=== PATIENT | female | born 1945 | race Caucasian/White ===

== ENCOUNTER → 2016-04-06 | Outpatient (CLI) | payer MEDICARE, OTHER ==
[2016-04-04 15:00] VITALS: BP 132/69
[~2016-04-06] MED LIST: CIPR250T30 PO; DOCU-27 PO; FERR-26 PO; HYDR-2666 PO; IBUP-1060 PO; IOHEXOL 180 MG/ML 10 ML VIAL. ONE; LIDO20SO PO; OXYC-323 PO; PANT40TA3 PO; SENN-22 PO; SUCR1TAB29 PO; SULF1TAB24 PO; SUMA100T3 PO; WARF3TAB PO; ZOLP5TAB PO; methylPREDNISolone ACETATE 40 MG/ML VIAL. ONE; methylPREDNISolone ACETATE 80 MG/ML VIAL. ONE
--- NOTE | 2016-04-06 23:07 | PAIN ---
DATE OF SERVICE: 04/06/2016 DIAGNOSES: Lumbar radiculopathy with lumbar degenerative disk disease. HISTORY OF PRESENT ILLNESS: The patient is a 70-year-old female who returns for followup, first seen as inpatient and scheduled for a lumbar epidural steroid injection today, still reporting significant pain in the low back and left lower extremity as she had previously. The patient reports no new motor or sensory deficits, no new changes since we spoke a few days ago. The patient reports still significant pain when trying to ambulate, to put any weight on her left leg whatsoever. She is in wheelchair today with good motor movement when sitting still, but without significant debility to weightbear. The patient reports otherwise no new motor or sensory deficits, no new bowel or bladder incontinence or other complaints. The patient's old chart was reviewed as her current medication regimen updated. Current review of systems updated today as well. PHYSICAL EXAMINATION: VITAL SIGNS: The patient's blood pressure is 110/70, pulse 96, respirations 18, temperature 97.8 degrees Fahrenheit, height is 5 feet 6 inches, weight is 130 pounds. GENERAL: The patient is awake, alert, oriented, appropriate, very pleasant demeanor. HEENT: Shows normocephalic, atraumatic. Extraocular movements are intact and symmetrical. Oral cavity, mucous membranes are moist and pink. NECK: Shows anterior throat supple. CHEST: Shows breath sounds clear to auscultation bilaterally. HEART: Shows S1 and S2 clear. ABDOMEN: Soft, nontender, nondistended. BACK: Shows spine grossly midline. There is some slight flattening of lumbar lordotic curvature and thoracic kyphotic curvature. Lumbar paraspinous musculature shows some moderate tenderness with palpation bilaterally in the middle and lower lumbar distribution of paraspinous muscles. No tenderness over the sacrum or sacroiliac regions. The patient shows good rotation of movement of the lumbar spine, both laterally greater than 10 degrees right and left as well as extension greater than 10 degrees, forward flexion 45 degrees without difficulty. EXTREMITIES: The patient's lower extremities showed deep tendon reflexes 1+ in the patellar and tendo calcaneus tendons. Motor exam is approximately a 3 on a scale of 5 with left quadriceps and hamstring flexion, but 4/5 with dorsiflexion, extension and 4/5 entirely on the right side. Options were discussed with the patient. We will proceed with a lumbar epidural steroid injection today with fluoroscopic guidance. Risks were again discussed including, but not limited to bleeding, infection, possibility of epidural hematoma and subsequent neurologic compromise, dural puncture, headaches, spinal cord and/or nerve damage, side effects of steroid medication, exacerbation of symptoms and poor results regarding pain control. The patient understands and wishes to proceed. The patient will return to clinic in approximately 2 weeks for followup, was counseled on return appointment, activity level and side effects to be aware of. DIAGNOSIS: Lumbar radiculopathy with lumbar degenerative disk disease. PROCEDURE: Lumbar epidural steroid injection, translaminar approach at the L4-L5 level using C-arm fluoroscopic guidance under sterile prep and drape using local anesthesia. Medication injected is 120 mg Depo-Medrol plus 10 mL of preservative-free normal saline and 2 mL Isovue for contrast. Condition at discharge is stable. The patient tolerated procedure well, had no complications. ELYSIA KHALIL MD DR: SHAWN/mode JOB#: [id number] / [id number]
== END ==
LOC: PNCL 08:36
PROVIDERS: ATTEND Anesthesiology
DX: M51.16 Intervertebral disc disorders with radiculopathy, lumbar region (principal)
CPT/HCPCS: 62323; J1030; J1040

== ENCOUNTER → 2016-05-04 | Outpatient (CLI) | payer MEDICARE, OTHER ==
[2016-04-04 15:00] VITALS: BP 132/69
--- NOTE | 2016-05-05 11:32 | PAIN ---
DATE OF SERVICE: 05/04/2016 DIAGNOSES: Lumbar radiculopathy with lumbar degenerative disk disease. HISTORY OF PRESENT ILLNESS: The patient is a 70-year-old female, who returns for followup status post lumbar epidural steroid injection x 2. The patient reports doing much better, about 50% overall improved with the last injection. Still some pain in the left leg as it was in the left lateral thigh, posterior thigh, posterior gluteus, posterior lower leg and lateral lower leg to the ankle. The patient reports a 4 on a scale of 10, aching and heavy feeling on the left leg, mostly a heaviness over the left lateral and posterior lower leg to the ankle on the left side only. The patient reports that she is walking better, though she is using a cane to ambulate. Still significantly favors her left lower extremity, but doing much better than previously. The patient reports no new motor or sensory deficits, no new bowel or bladder incontinence or other complaints. PHYSICAL EXAMINATION: VITAL SIGNS: Today, the patient's blood pressure is 120/69, pulse 90, respirations 18, temperature 98.2 degrees Fahrenheit, height is 5 feet 6 inches, weight is 120 pounds. GENERAL: The patient is awake, alert, oriented, appropriate, very pleasant demeanor. HEENT: Head shows normocephalic, atraumatic. Extraocular movements are intact and symmetrical. Oral cavity shows mucous membranes moist and pink. Dentition is intact. NECK: Shows anterior throat supple without palpable lymphadenopathy noted. Swallow reflex is symmetrical. Neck shows full rotational motion of the cervical spine without difficulty including extension and flexion. CHEST: Shows normal on inspection. Breath sounds are clear to auscultation bilaterally. HEART: Shows S1 and S2 clear. ABDOMEN: Soft, nontender, nondistended. No palpable organomegaly is noted. BACK: Shows spine grossly midline. Slight exaggeration of thoracic kyphosis and mild flattening of lumbar lordotic curvature. Lumbar paraspinous muscle shows some mild tenderness with palpation throughout the upper, middle, lower distribution of paraspinous muscles, though only diffusely without radiation. No tenderness over the sacrum or sacroiliac regions. The patient shows good rotational motion of the lumbar spine, both laterally as well as extension and forward flexion without pain reported. EXTREMITIES: Lower extremities show deep tendon reflexes 1+ in the patellar and tendo-calcaneus tendons are equal. Motor exam is approximately 4 on a scale 5 with left quadriceps and hamstring flexion 5/5 on the right. Peripheral pulses are 1+ posterior tibial and dorsalis pedis pulses. No peripheral edema is noted. PLAN: Options were discussed with the patient. The patient's old chart was reviewed as was her current medication regimen updated. Current review of systems was updated today as well. We will proceed with a third lumbar epidural steroid injection today with fluoroscopic guidance. Risks were again discussed including, but not limited to, bleeding, infection, possibility of epidural hematoma, subsequent neurologic compromise, dural punctures, headaches, spinal cord and/or nerve damage, side effects of steroid medication, and poor results regarding pain control. The patient understands and wished to proceed. The patient will return to the clinic in approximately 2 weeks for followup. She was counseled as to return appointment, activity level, and side effects to be aware of. DIAGNOSES: Lumbar radiculopathy with lumbar degenerative disk disease. PROCEDURE: Lumbar epidural steroid injection translaminar approach at the L5-S1 level with C-arm fluoroscopic guidance. Under sterile prep and drape using local anesthetic, medication injection was 120 mg of Depo-Medrol plus 10 mL of preservative-free normal saline and 2 mL of Isovue contrast. CONDITION AT DISCHARGE: Stable. The patient tolerated the procedure well, had no complications. ELYSIA KHALIL MD DR: SHAWN/mode JOB#: [id number] / [id number]
== END | disposition home or self-care (01) ==
LOC: PNCL 09:27
PROVIDERS: ATTEND Anesthesiology
DX: M51.16 Intervertebral disc disorders with radiculopathy, lumbar region (principal); Z90.710 Acquired absence of both cervix and uterus; M19.90 Unspecified osteoarthritis, unspecified site
CPT/HCPCS: 62321; J1030; J1040

== ENCOUNTER → 2017-06-30 | Outpatient (CLI) | payer MEDICARE, OTHER | END | disposition home or self-care (01) | LOC: KCIC 15:44 | DX: M41.86 Other forms of scoliosis, lumbar region (principal); M47.896 Other spondylosis, lumbar region; M51.36 Other intervertebral disc degeneration, lumbar region; M25.78 Osteophyte, vertebrae | CPT/HCPCS: 72110 ==

== ENCOUNTER → 2017-07-07 | Outpatient (CLI) | payer MEDICARE, OTHER | END | disposition home or self-care (01) | LOC: KCIC MRI 15:38 | DX: M48.56XA Collapsed vertebra, not elsewhere classified, lumbar region, initial encounter for fracture (principal); M48.061 Spinal stenosis, lumbar region without neurogenic claudication; D18.09 Hemangioma of other sites | CPT/HCPCS: 72148 ==

== ENCOUNTER 2017-07-12 06:55 | Outpatient (CLI) | payer MEDICARE, OTHER ==
[2017-07-12 07:17] LABS: ADD MAN DIFF? NO
[2017-07-12 07:28] LABS: BASO % 1 % (0-3); EOS # 0.2 x10^3/uL (0.0-0.7); EOS % 4 % (0-3); HEMOGLOBIN 13.8 g/dL (12.0-15.5); LYMPH # 1.7 x10^3/uL (1.0-4.8); LYMPH % 30 % (24-48); MEAN CORPUSCULAR HEMOGLOBIN 31 pg (25-35); MEAN CORPUSCULAR HGB CONC 34 g/dL (31-37); MEAN CORPUSCULAR VOLUME 92 fL (79-100); MONO # 0.5 x10^3/uL (0.0-1.1); MONO % 9 % (0-9); NEUT # 3.3 x10^3uL (1.8-7.7); NEUT % 58 % (31-73); PLATELET COUNT 290 x10^3/uL (140-400); RED BLOOD COUNT 4.46 x10^6/uL (3.50-5.40); RED CELL DISTRIBUTION WIDTH 14.4 % (11.5-14.5); WHITE BLOOD COUNT 5.8 x10^3/uL (4.0-11.0)
[2017-07-12 07:43] LABS: PROTHROMBIN TIME PATIENT 12.4 SEC (11.7-14.0)
[2017-07-12] MEDS ORDERED: LIDOCAINE WITH 8.4% SOD BICARB 3 ML DISP.SYRIN. ×2 (08:07→09:14)
[2017-07-12] MEDS ORDERED: IODIXANOL 320MG/ML 50ML VIAL. (08:17)
[2017-07-12] MEDS ORDERED: CONTRAST GIVEN MC (08:30)
[2017-07-12] MEDS ORDERED: fentaNYL PF VIAL 100 MCG/2 ML VIAL (08:49)
[2017-07-12] MEDS ORDERED: MIDAZOLAM HCL/PF 2 MG/2 ML VIAL. (08:49)
[2017-07-12] MEDS: fentaNYL PF VIAL 100 MCG/2 ML VIAL IV (09:35)
[2017-07-12] MEDS: MIDAZOLAM HCL/PF 2 MG/2 ML VIAL. IV (09:36)
[2017-07-12] MEDS: IODIXANOL 320MG/ML 50ML VIAL. IV (09:36)
[2017-07-12] MEDS: LIDOCAINE WITH 8.4% SOD BICARB 3 ML DISP.SYRIN. IJ (09:37)
== END 2017-07-12 12:14 | disposition home or self-care (01) ==
LOC: INTRAD 06:55
DX: S32.010A Wedge compression fracture of first lumbar vertebra, initial encounter for closed fracture (principal); M54.9 Dorsalgia, unspecified; X58.XXXA Exposure to other specified factors, initial encounter; Y93.9 Activity, unspecified; Y92.9 Unspecified place or not applicable
CPT/HCPCS: 22514; 36415; 85025; 85610; 99152; 99153; C1758; C1892; J0690; J2250; J3010

== ENCOUNTER → 2018-03-06 | Outpatient (CLI) | payer MEDICARE, OTHER ==
[2017-07-12 11:00] VITALS: BP 106/56
[~2018-03-06] MED LIST changes: +DOCU-109 PO; -DOCU-27 PO; -FERR-26 PO; +FERR325T14 PO; -HYDR-2666 PO; +HYDR-2761 PO; -IOHEXOL 180 MG/ML 10 ML VIAL. ONE; -OXYC-323 PO; +OXYC1TAB15 PO; -SUCR1TAB29 PO; +SUCR1TAB35 PO; -WARF3TAB PO; +WARF3TAB54 PO; -methylPREDNISolone ACETATE 40 MG/ML VIAL. ONE; -methylPREDNISolone ACETATE 80 MG/ML VIAL. ONE
--- NOTE | 2018-03-06 16:15 | KCIC ---
Three-view right foot study Clinical indications: Right foot and pain after heavy object was dropped on right foot 3 weeks ago. COMPARISON: None available. FINDINGS: There is a subacute healing fracture of the midshaft of the first metatarsal bone. No significant displacement is evident. No lytic process is seen. There is lateral subluxation of the fifth middle phalanx with respect to the fifth proximal phalanx. Old healed fracture of the distal fifth metatarsal bone is seen. Subtalar joint fusion is evident with a metallic screw in place. IMPRESSION: Subacute healing fracture of the midshaft of the first metatarsal bone. Electronically signed by: Asa Hutton MD (03/06/2018 4:11 PM) [facility]
== END | disposition home or self-care (01) ==
LOC: KCIC 10:24
PROVIDERS: ATTEND Family Medicine
DX: S92.311D Displaced fracture of first metatarsal bone, right foot, subsequent encounter for fracture with routine healing (principal); X58.XXXD Exposure to other specified factors, subsequent encounter
CPT/HCPCS: 73630

== ENCOUNTER → 2018-04-02 | Outpatient (CLI) | payer MEDICARE, OTHER ==
[2017-07-12 11:00] VITALS: BP 106/56
--- NOTE | 2018-04-02 13:23 | KCIC ---
EXAM: Right foot, 3 views. HISTORY: Fracture follow-up. COMPARISON: 03/06/2018 FINDINGS: 3 views of the right foot are obtained. There has been slight interval progressive callus formation associated with a healing first mid metatarsal fracture. There is stable chronic abduction or slight subluxation at the fifth proximal interphalangeal joint. There is stable talocalcaneal fusion with a screw and loss of the subtalar joint space. There is suspected healed distal fifth metatarsal fracture. IMPRESSION: 1. Slight progressive healing of a mid first metatarsal fracture. 2. Stable talocalcaneal/subtalar fusion. 3. Stable abduction or slight subluxation at the fifth proximal interphalangeal joint. Electronically signed by: Kiley Soliz MD (04/02/2018 1:19 PM) [email or web address]
== END | disposition home or self-care (01) ==
LOC: KCIC 12:48
PROVIDERS: ATTEND Family Medicine
DX: S92.311D Displaced fracture of first metatarsal bone, right foot, subsequent encounter for fracture with routine healing (principal); W20.8XXD Other cause of strike by thrown, projected or falling object, subsequent encounter
CPT/HCPCS: 73630

== ENCOUNTER → 2019-11-15 | Outpatient (CLI) | payer MEDICARE, OTHER ==
[2017-07-12 11:00] VITALS: BP 106/56
[~2019-11-15] MED LIST changes: -PANT40TA3 PO; +PANT40TA77 PO
--- NOTE | 2019-11-15 12:58 | KCIC ---
Bilateral digital screening mammograms with 3-D tomosynthesis: Reason for examination: Routine screening. Comparison is made to previous studies dated 11/16/2016 and 06/19/2009. Bilateral mammograms in CC and oblique projections were obtained with 2-D imaging and 3-D tomosynthesis imaging on a Siemens Inspiration unit and reviewed on the workstation. Interpretation was made with the benefit of CAD. The skin and nipples show no abnormalities. No abnormal axillary lymph nodes are seen. Bilateral breast implants remain present. The breast parenchyma shows scattered fatty and fibroglandular density. (Breast density: Category B.) There continues to be a small circumscribed nodule medially on cc view and the right breast which is stable. There continues to be some nodularity to the parenchyma in the subareolar positions bilaterally which is stable. There are no new dominant masses, suspicious calcifications or architectural distortion. Impression: No evidence of malignancy. Recommend routine screening. BI-RAD Category 2: Benign. "Our facility is accredited by the [employer] Mammography Program." This patient's information has been entered into a reminder system for the patient to be notified with the results of her examination and a target date for the next mammogram. Electronically signed by: Eli Johnson MD (11/15/2019 12:55 PM) [id number]
== END | disposition home or self-care (01) ==
LOC: KCIC MAMMO 09:58
PROVIDERS: ATTEND Family Medicine
DX: Z12.31 Encounter for screening mammogram for malignant neoplasm of breast (principal); N64.89 Other specified disorders of breast
CPT/HCPCS: 77063; 77067

== ENCOUNTER → 2020-09-25 | Outpatient (CLI) | payer MEDICARE, OTHER ==
[2017-07-12 11:00] VITALS: BP 106/56
--- NOTE | 2020-09-25 11:44 | KCIC ---
MR LUMBAR SPINE WO [id number] 09/25/2020 8:48 AM INDICATION: Lumbar radiculopathy COMPARISON: MRI lumbar spine 07/07/2017 TECHNIQUE: Multiplanar, multisequence MR imaging of the lumbar sinus performed without intravenous c ontrast. FINDINGS: Spinal augmentation changes are identified at L1 with chronic 25% height loss. There is 2 mm anteroli sthesis of L3 on L4. Vertebral body heights are otherwise maintained. Marrow signal intensity is norm al in all sequences. Conus medullaris terminates at L1-L2. Distal spinal cord signal intensity is nor mal in all sequences. Abdominal aorta is normal in caliber. No suspicious retroperitoneal abnormality is identified. Visualized portions of the sacrum appear intact. T12-L1: Mild disc bulge. No significant facet arthropathy. No neuroforaminal or spinal canal stenosis . L1-L2: Mild disc bulge. Mild facet arthropathy ligamentum flavum infolding. Mild bilateral neuroforam inal stenosis. Mild spinal canal stenosis. L2-L3: There is a circumferential disc bulge. Mild facet arthropathy with ligamentum flavum infolding . Mild bilateral neuroforaminal stenosis. Mild spinal canal stenosis. Findings osteophyte change sinc e prior examination from 07/07/2017. L3-L4: There is a disc bulge asymmetric to the left. There is severe facet arthropathy, left greater than right. Mild right and moderate left neuroforaminal stenosis, stable. Mild spinal canal stenosis, unchanged. L4-L5: There is a circumferential disc bulge with central disc extrusion. Mild facet arthropathy liga mentum flavum infolding. Moderate to severe left and moderate right neuroforaminal stenosis. Mild spi nal canal stenosis. Findings are similar to prior examination. L5-S1: Disc is normal in configuration. Mild facet arthropathy. No neuroforaminal or spinal canal davidson nosis. IMPRESSION: Mild degenerative changes of lumbar spine without significant interval change since prior examination . Post treatment changes from spinal augmentation at L1 with similar 25% height loss. Electronically signed by: Mona Ortiz MD (09/25/2020 11:41 AM) [id number]
== END ==
LOC: KCIC MRI 08:20
PROVIDERS: ATTEND Family Medicine
DX: M47.817 Spondylosis without myelopathy or radiculopathy, lumbosacral region (principal); M51.26 Other intervertebral disc displacement, lumbar region; M48.061 Spinal stenosis, lumbar region without neurogenic claudication
CPT/HCPCS: 72148

== ENCOUNTER → 2020-10-08 | Outpatient (CLI) | payer MEDICARE, OTHER ==
[2017-07-12 11:00] VITALS: BP 106/56
[~2020-10-08] MED LIST changes: +DENO60DI SQ; +IOHEXOL 180 MG/ML 10 ML VIAL. ONE; +methylPREDNISolone ACETATE 40 MG/ML VIAL. ONE; +methylPREDNISolone ACETATE 80 MG/ML VIAL. ONE
--- NOTE | 2020-10-08 16:14 | PDOC1 ---
INITIAL PAIN CONSULT DATE OF SERVICE: DOS: DATE: 10/08/20 TIME: 16:06 CHIEF COMPLAINT: Chief Complaint: Low back and left lower extremity pain HISTORY OF PRESENT ILLNESS: 75-year-old female presents history of pain low back left lower extremity for about 3 months after falling at home when she stumbled on some steps and landed on her left side. Patient reports he had pain low back left lower extremity radiating the posterior gluteus posterior lateral thigh lateral anterior thigh to the knee into the calf on the medial aspect at times. Patient reports back is painful as well worse with walking standing changing positions better with sitting or laying down generally does not awaken her from sleep at night patient reports that it does not affect her bowel bladder control but can affect her ability to walk is using a cane in her right hand and has it with her today. 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 Patient did have MRI scan lumbar spine dated September 25, 2020 showing cervical disc bulge at L2-3 L3-4 showing disc bulge asymmetric to the left mild spinal canal stenosis L4-5 shows circumferential disc bulge with central disc extrusion moderate to severe left and moderate right neuroforaminal stenosis mild spinal canal stenosis patient reports no loss of motor function but significant fatigability of the left lower extremity. PAST MEDICAL HISTORY: PMH: Diverticulosis, arthritis, osteoporosis, irregular heart rhythm PREVIOUS SURGERIES: Past Surgical Hx: Right knee replacement, hysterectomy, LASEK procedure, facelift, right heel surgery, breast implants, left eye surgery, foot surgery CURRENT MEDICATIONS: Current Meds: Active Scripts Medications Dose Route/Sig Max Daily Dose Days Date Category Dose Instructions Prolia (Denosumab) 60 Mg/1 Ml Disp.syrin 1 Syr SQ [id number] 1 10/08/20 Reported Ibuprofen 800 Mg Tablet 800 Mg PO PRN TID PRN 04/04/16 Rx Senna-Time S Tablet (Sennosides/Docusate Sodium) 1 Each Tablet 1-2 Tab PO PRN BID PRN 04/04/16 Rx Imitrex (Sumatriptan Succinate) 100 Mg Tablet 100 Mg PO PRN PRN 06/06/14 Reported Not given while in hosp. May resume at home as directed as needed. ALLERGIES; Allergies: Coded Allergies: No Known Drug Allergies (Unverified , 3/4/16) FAMILY HISTORY: Family Hx: No major medical problems or conditions that she is aware of. SOCIAL HISTORY: Social Hx: Patient is alcohol only very rarely does not smoke not use any illegal illicit recreational drugs is lives with her spouse lives locally in [facility] and is currently retired. REVIEW OF SYSTEMS: ROS: Positive for those items mentioned in history of present illness, all systems are reviewed, otherwise negative ,and are complete full and well-documented on patient's chart. PHYSICAL EXAM: VS: Blood pressure is 102/78 pulse 69 respirations 18 temperature is 98.2 F height is 5 foot 3 inches, weight is 124 pounds. PE: PHYSICAL EXAMINATION: GENERAL: The patient is awake, alert, oriented, appropriate, very pleasant demeanor HEENT: Shows normocephalic, atraumatic. Extraocular movements are intact and symmetrical. Oral cavity: Mucous membranes moist and pink. Dentition is intact. NECK: Shows anterior throat supple without palpable lymphadenopathy noted. Swallow reflex symmetrical. CHEST: Shows normal on inspection. Breath sounds are clear bilaterally, distant but no rales rhonchi or wheezes auscultated. HEART: Shows S1, S2 clear. No murmurs auscultated. ABDOMEN: Soft, nontender, nondistended, flat. No palpable organomegaly is noted. BACK: Shows spine grossly in the midline. Normal-appearing cervical lordotic curvature. There is increased thoracic kyphosis, some mild flattening of the lumbar lordotic curvature. Lumbar paraspinous muscles show symmetrical on inspection, on palpation shows some moderate tenderness diffusely throughout the upper, middle and lower distribution of the paraspinous muscles bilaterally and also into the lower thoracic paraspinous musculature, firm and tender, but without specific trigger points, without radiation of pain. The patient has good rotational motion of the lumbar spine, both laterally as well as extension and flexion without significant difficulty. No tenderness over the spinous processes, sacrum or sacroiliac regions. EXTREMITIES: Lower extremities show deep tendon reflexes 2+ in the patellar and tendo calcaneus tendons. Motor exam is 5 on a scale of 5 with right dorsi flexion, extension, quadriceps and hamstring flexion and 4/5 on the left. Peripheral pulses are 1 posterior tibial. No peripheral edema is noted bilaterally. Lower extremities are warm and dry to touch, equal in color and appearance. Straight leg raise noted to be positive on the left approximately 40 degrees decreased with knee flexion, right side is negative. Gaenslen's and Crow's maneuvers are negative bilateral as well. The patient is able to stand, stand on her toes walks with a limping gait does appear to favor the left lower extremity and again has a cane she is using a brace in her right hand. SKIN: Shows warm and dry, good turgor. No edema. No sores, rashes or bruising throughout. IMPRESSION: Impression: 75-year-old female with long history of low back pain worse after fall at home over the past 3 months with radicular pain in the left lower extremity. MRI scan lumbar spine as noted Arthritis Osteoporosis Plan: Options were discussed with the patient including conservative medical management physical therapy interventional techniques. Patient would like to pursue interventional techniques. We discussed a lumbar epidural steroid injections description as well as anatomical models described the procedure. Risks were discussed including but not limited to: Bleeding, infection, possibility of epidural hematoma and subsequent neurological compromise, dural puncture, headaches, spinal cord and/or nerve damage, side effects of steroid medication, and poor results regarding pain control. Patient understands and wished to proceed. Patient return to the clinic in approximate 2 weeks for f ollow-up, was counseled as return appointment activity level, and side effects to be aware of. Procedure is lumbar epidural steroid injection under local anesthetic using sterile prep and drape at the L4-5 level using C-arm fluoroscopic guidance in both AP and lateral views medications injected is 120 mg Depo-Medrol +10mL preservative-free normal saline and 2 mL contrast- condition at discharge is stable patient tolerated procedure well had no complications. ELYSIA KHALIL MD Oct 08, 2020 16:13
== END | disposition home or self-care (01) ==
LOC: PNCL 12:55
PROVIDERS: ATTEND Anesthesiology
DX: M54.5 Low back pain (principal); M79.605 Pain in left leg; M19.90 Unspecified osteoarthritis, unspecified site; M81.0 Age-related osteoporosis without current pathological fracture; Z90.710 Acquired absence of both cervix and uterus; Z98.890 Other specified postprocedural states; Z79.899 Other long term (current) drug therapy
CPT/HCPCS: 62323; 99205; J1030; J1040; Q9965; G0463

== ENCOUNTER → 2020-10-22 | Outpatient (CLI) | payer MEDICARE, OTHER ==
[2017-07-12 11:00] VITALS: BP_DIAS 56
[2020-10-19 15:00] VITALS: BP_SYST 116
[~2020-10-22] MED LIST changes: +CEPH500C PO; +DICY10CA3 PO; +ONDA4TAB7 PO
--- NOTE | 2020-10-22 10:56 | PDOC ---
Progress Note - Pain Clinic Date of Service: DOS: DATE: 10/22/20 TIME: 10:53 Diagnosis: Dx: Lumbar radiculopathy lumbar degenerative disc disease and lumbar spinal stenosis History or Present Illness: HPI: 75-year-old female returns for follow-up status post lumbar epidural to injection x1. Patient reports about 50% improvement in the pain in the low back and the left lower extremity but patient was recently hospitalized secondary to bowel obstruction and this is passed without surgery however she was laying flat for many days in the hospital and having multiple x-ray exams which she reports exacerbated the pain in her back and her left leg rating the posterior gluteus posterior lateral thigh lateral anterior thigh anterior medial thigh medial lower leg and posterior knee patient reports is a 7 on scale 10 over the past week at all times average worst and least is a 7 today patient comes aching con stant severe burning cramping stabbing in the back and shooting and tight in the lower extremity on the left patient reports is better with sitting or laying down but worse with standing weightbearing generally does not awaken her from sleep at night. Patient reports no new motor or sensory deficits no bowel or bladder incontinence Physical Exam: VS: Blood pressure is 118/69 pulse 53 respirations 18 temperature 98.2 F height 5 feet 3 inches weight 122 pounds PE: PHYSICAL EXAMINATION: GENERAL: The patient is awake, alert, oriented, appropriate, very pleasant in demeanor HEENT: Shows normocephalic, atraumatic. Extraocular movements are intact and symmetrical. Oral cavity: Mucous membranes moist and pink. NECK: Shows anterior throat supple without palpable lymphadenopathy noted. Swallow reflex symmetrical. CHEST: Shows normal on inspection. Breath sounds are clear bilaterally, distant but no rales or rhonchi. HEART: Shows S1, S2 clear. No murmurs auscultated. ABDOMEN: Soft, nontender, nondistended, obese. No palpable organomegaly is noted. BACK: Shows spine grossly in the midline. Normal-appearing cervical lordotic curvature. There is slightly increased thoracic kyphosis, some minor flattening of the lumbar lordotic curvature. Lumbar paraspinous muscles show symmetrical on inspection, on palpation shows some moderate tenderness diffusely throughout the upper, middle and lower distribution of the paraspinous muscles without specific trigger points, without radiation of pain. The patient has good rotational motion of the lumbar spine, both laterally as well as extension and flexion without significant difficulty. EXTREMITIES: Lower extremities show deep tendon reflexes 2+ in the patellar and tendo calcaneus tendons. Motor exam is 5 on a scale of 5 with right dorsiflexion, extension, quadriceps and hamstring flexion and 4/5 on the left. Peripheral pulses are 1+ posterior tibial. No peripheral edema is noted bilaterally. Lower extremities are warm and dry. SKIN: Shows warm and dry, good turgor. No edema. No sores, rashes or bruising throughout. Procedure: Procedure: Options were discussed with patient. Patient chart was reviewed as her current medication regimen updated current review of systems updated today as well. We will proceed with a second lumbar epidural steroid injection today with fluoroscopic guidance. Risks were discussed including but not limited to: Bleeding, infection, possibility of epidural hematoma and subsequent neurological compromise, dural puncture, headaches, spinal cord and/or nerve damage, side effects of steroid medication, and poor results regarding pain control. Patient understands and wished to proceed. Patient return to clinic in approximate 2 weeks for follow-up, was counseled as to return appointment activity level and side effects to be aware of. Medication Injected: Med Injected: Procedure is lumbar epidural steroid injection under local anesthetic using sterile prep and drape at the L4-5 level using C-arm fluoroscopic guidance in both AP and lateral views medications injected is 120 mg Depo-Medrol +10mL preservative-free normal saline and 2 mL contrast- condition at discharge is stable patient tolerated procedure well had no complications. Condition at Discharge: Condition at Discharge: Condition at discharge stable, patient tolerated the procedure well and had no complications. ELYSIA KHALIL MD Oct 22, 2020 10:56
--- NOTE | 2020-10-22 10:57 | PDOC4 ---
Procedure Note: ICD 10 Code: ICD 10 Code: M 54.16 M 48.07 Procedure Note: Patient was consented for lumbar epidural steroid injection with fluoroscopic guidance. Risks were discussed including but not limited to: Bleeding, infection, possibility of epidural hematoma and subsequent neurological compromise, dural puncture, headaches, spinal cord and/or nerve damage, side effects of steroid medication, and poor results regarding pain control. Patient understands and wished to proceed. Procedure is lumbar epidural steroid injection under local anesthetic using sterile prep and drape at the L4-5 level using C-arm fluoroscopic guidance in both AP and lateral views medications injected is 120 mg Depo-Medrol +10mL preservative-free normal saline and 2 mL contrast- condition at discharge is stable patient tolerated procedure well had no complications. ELYSIA KHALIL MD Oct 22, 2020 10:57
== END ==
LOC: PNCL 09:42
PROVIDERS: ATTEND Anesthesiology
DX: M48.061 Spinal stenosis, lumbar region without neurogenic claudication (principal); M51.16 Intervertebral disc disorders with radiculopathy, lumbar region
CPT/HCPCS: 62323; J1030; J1040; Q9965

== ENCOUNTER → 2020-11-26 | Outpatient (CLI) | payer MEDICARE, OTHER ==
[2020-10-19 15:00] VITALS: BP 116/56
[~2020-11-26] MED LIST changes: +PLEC3TAB2 PO; -methylPREDNISolone ACETATE 40 MG/ML VIAL. ONE
--- NOTE | 2020-11-26 09:14 | PDOC4 ---
Procedure Note: ICD 10 Code: ICD 10 Code: M54.16 M4 8.06 M51.36 Procedure Note: Patient was consented for lumbar epidural steroid injection with fluoroscopic guidance. Risks were discussed including but not limited to: Bleeding, infection, possibility of epidural hematoma and subsequent neurological compromise, dural puncture, headaches, spinal cord and/or nerve damage, side effects of steroid medication, and poor results regarding pain control. Patient understands and wished to proceed. Procedure is lumbar epidural steroid injection under local anesthetic using davidson rile prep and drape at the L4-5 level using C-arm fluoroscopic guidance in both AP and lateral views medications injected is 120 mg Depo-Medrol +10mL preservative-free normal saline and 2 mL contrast- condition at discharge is stable patient tolerated procedure well had no complications. ELYSIA KHALIL MD Nov 26, 2020 09:14
--- NOTE | 2020-11-26 09:14 | PDOC ---
Progress Note - Pain Clinic Date of Service: DOS: DATE: 11/26/20 TIME: 09:11 Diagnosis: Dx: Lumbar radiculopathy with lumbar degenerative disease and lumbar spinal stenosis History or Present Illness: HPI: 75-year-old female returns for follow-up status post lumbar epidural steroid injection x2. Last seen 10/22/2020 patient reports she did very well with about 80% improvement for the first 3 to 4 weeks the pain returning now over the past few days she has a new finding of some weakness in the left lower extremity and she actually fell just about 2 weeks ago reports that the leg just gave out she does not have this happen before is felt weak since that time patient reports her pain is a 7 on scale 10 is worst average and least is a 7 today describes aching radiating constant stabbing cramping can be tingling and burning in the left leg as well patient reports still feels weak which is new finding for her as previously the weakness improved significantly after the injections but seems to be getting more so since her last visit. Patient reports no new bowel or bladder incontinence Physical Exam: VS: Blood pressure is 132/53 pulse 71 respirations 18 temperature 98.0 F weight is 122 pounds PE: PHYSICAL EXAMINATION: GENERAL: The patient is awake, alert, oriented, appropriate, very pleasant in demeanor HEENT: Shows normocephalic, atraumatic. Extraocular movements are intact and symmetrical. Oral cavity: Mucous membranes moist and pink. NECK: Shows anterior throat supple without palpable lymphadenopathy noted. Swallow reflex symmetrical. CHEST: Shows normal on inspection. Breath sounds are clear bilaterally, no rales rhonchi or wheezes auscultated. HEART: Shows S1, S2 clear. No murmurs auscultated. ABDOMEN: Soft, nontender, nondistended, obese. No palpable organomegaly is noted. BACK: Shows spine grossly in the midline. Normal-appearing cervical lordotic curvature. There is slightly increased thoracic kyphosis, some minor flattening of the lumbar lordotic curvature. Lumbar paraspinous muscles show symmetrical on inspection, on palpation shows some moderate tenderness diffusely throughout the upper, middle and lower distribution of the paraspinous muscles, but without specific trigger points, without radiation of pain. The patient has good rotational motion of the lumbar spine, both laterally as well as extension and flexion without significant difficulty. EXTREMITIES: Lower extremities show deep tendon reflexes 2+ in the patellar and tendo calcaneus tendons. Motor exam is 5 on a scale of 5 with right dorsiflexion, extension, quadriceps and hamstring flexion and 4/5 on the left. Peripheral pulses are 1+ posterior tibial. No peripheral edema is noted bilaterally. Lower extremities are warm and dry. SKIN: Shows warm and dry, good turgor. No edema. No sores, rashes or bruising throughout. Procedure: Procedure: Options discussed with patient. Patient's old chart was reviewed as her current medication regimen updated current review of systems updated today as well. We will proceed with a lumbar epidural steroid injection today with fluoroscopic guidance. Risks were discussed including but not limited to: Bleeding, infection, possibility of epidural hematoma and subsequent neurological co mpromise, dural puncture, headaches, spinal cord and/or nerve damage, side effects of steroid medication, and poor results regarding pain control. Patient understands and wished to proceed. She will return to the clinic in approximate 2 weeks for follow-up, was counseled as to return appointment active level and side effects to be aware of. Medication Injected: Med Injected: Procedure is lumbar epidural steroid injection under local anesthetic using sterile prep and drape at the L4-5 level using C-arm fluoroscopic guidance in both AP and lateral views medications injected is 120 mg Depo-Medrol +10mL preservative-free normal saline and 2 mL contrast- condition at discharge is stable patient tolerated procedure well had no complications. Condition at Discharge: Condition at Discharge: Condition at discharge stable, patient tolerated the procedure well and had no complications. ELYSIA KHALIL MD Nov 26, 2020 09:14
== END ==
LOC: PNCL 09:10
PROVIDERS: ATTEND Anesthesiology
DX: M51.16 Intervertebral disc disorders with radiculopathy, lumbar region (principal); M48.061 Spinal stenosis, lumbar region without neurogenic claudication
CPT/HCPCS: 62323; J1040; Q9965

== ENCOUNTER → 2021-01-01 | Outpatient (CLI) | payer MEDICARE, OTHER ==
[2020-10-19 15:00] VITALS: BP 116/56
[~2021-01-01] MED LIST changes: -IOHEXOL 180 MG/ML 10 ML VIAL. ONE; -methylPREDNISolone ACETATE 80 MG/ML VIAL. ONE
--- NOTE | 2021-01-01 16:11 | KCIC ---
Bilateral digital screening 2-D and 3-D (tomosynthesis) mammogram: Reason for examination: Routine screening. Comparison is made to previous study dated 11/15/2019. Bilateral mammograms in CC and oblique projections were obtained with 2-D imaging and 3-D tomosynthes is imaging and reviewed on the workstation. Interpretation was made with the benefit of CAD. Findings: Breast density: Category C. The breasts are heterogeneously dense, which may obscure small masses. There are no suspicious masses, malignant appearing calcifications or architectural distortion. There is a small benign intramammary lymph node in the right upper outer quadrant approximately 2.5 cm fro m the nipple. A more vague area of nodularity is seen right breast about 2.5 cm from the nipple on th e 3-D CC images was present on the prior exam. The retroglandular bilateral silicone breast show cont our. Impression: No evidence of malignancy. ASSESSMENT: BI-RADS 2. Benign findings. Recommendations: Routine screening mammograms. This patient's information has been entered into a reminder system for the patient to be notified wit h the results of her examination and a target date for the next mammogram. Your patient's mammogram demonstrates that she has dense breast tissue (breast density category C or D), which could hide abnormalities, and if she has other risk factors for breast cancer that have bee n identified, she might benefit from supplemental screening tests that may be suggested by you as her ordering physician. Dense breast tissue, in and of itself, is a relatively common condition. Therefo re, this information is not provided to cause undue concern, but rather to raise your awareness and t o promote discussion with your patient regarding the presence of other risk factors, in addition to d ense breast tissue. Electronically signed by: Gloria Carty MD (01/01/2021 4:08 PM) [id number]
== END ==
LOC: KCIC MAMMO 10:00
PROVIDERS: ATTEND Family Medicine
DX: Z12.31 Encounter for screening mammogram for malignant neoplasm of breast (principal)
CPT/HCPCS: 77063; 77067

== ENCOUNTER → 2021-05-17 | Outpatient (CLI) | payer MEDICARE, OTHER ==
[2020-10-19 15:00] VITALS: BP 116/56
--- NOTE | 2021-05-17 12:13 | KCIC ---
EXAM: Right foot, 3 views; right ankle, 3 views. HISTORY: Acquired deformity. Surgery. Pain. COMPARISON: 04/02/2018 FINDINGS: 3 views of the right foot and ankle are obtained. There has been interval healing of a firs t metatarsal fracture. There is suspected slight associated foreshortening of the first metatarsal. T here is also a healed fracture of the distal fifth metatarsal. There has been partial interval amputa tion of the fifth proximal phalanx. There is instrumented fusion of the subtalar joint with associate d bony bridging. There is also fusion is rotation within the medial and lateral midfoot traversing ca lcaneal cuboid joint and talonavicular joint. There is bone demineralization, likely due to disuse os teopenia. There is tibiotalar joint spurring. There is enthesopathy at Achilles tendon insertion. The re is no osteochondral lesion. There are small corticated ossicles inferior to the medial and lateral malleoli, likely due to chronic nonunited avulsion fracture fragments. IMPRESSION: 1. Healed first and fifth metatarsal fractures. 2. Instrumented fusion of the mid and hindfoot with bony bridging. 3. Interval partial amputation of the fifth proximal phalanx. 4. 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 5. Tibiotalar joint osteoarthritis and chronic suspected avulsion fracture fragments inferior to the medial and lateral malleoli. Electronically signed by: Kiley Soliz MD (05/17/2021 12:11 PM) [id number]
== END ==
LOC: KCIC 11:10
PROVIDERS: ATTEND Orthopaedic Surgery
DX: M19.071 Primary osteoarthritis, right ankle and foot (principal); M76.61 Achilles tendinitis, right leg; M21.961 Unspecified acquired deformity of right lower leg
CPT/HCPCS: 73610; 73630

== ENCOUNTER 2021-07-19 16:00 | Inpatient (IN) | payer MEDICARE, OTHER ==
[~2021-07-19] VITALS: Ht 165.1 cm; Wt 56.4 kg
--- NOTE | 2021-07-19 17:21 | PDOC1 ---
History and Physical Date of Admission Date of Admission DATE: 07/19/21 TIME: 17:20 Identification/Chief Complaint Chief Complaint Buttock pain, fall Source Source: Patient History of Present Illness History of Present Illness Ms Dietrich is a 75-year-old female with PMHx chronic back pain, migraines, prior SBO presenting to ED at [facility] in [place], [place] after a fall onto her backside. She initially fell at 0800 on 07/18/2021 on her bottom and she blames her right foot boot from her recent foot surgery with Dr. Hogan at [facility]. She notes she lost her balance did not strike her head. She has not been able to bear weight on her left leg after this. Previously she has had an L1 fracture and kyphoplasty but did not note back pain that high its border gluteal area shooting down into her left leg. WBC 15.1, Hb 13.2, platelets 225, NA 136, K3.8, BUN 12, CR 0.6, glucose 110, calcium 8.5, magnesium 2.1, bilirubin 1.5, AST 26, ALT 29, alkaline phosphatase 85, albumin 3.6, high-sensitivity troponin is 204, urinalysis with positive leuk esterase positive nitrites positive ketones, rapid COVID-19, rapid influenza both negative EKG tachycardia rate 130 bpm no noticeable P waves consistent with likely atrial fibrillation with RVR appears to have left axis deviation and left anterior fascicular block, QTC 500 Chest radiograph with no acute abnormalities, left hip with ORIF of left femur nondisplaced, on CT lumbar spine and left sacral alae fracture noted mild retroperitoneal stranding the left psoas muscle. Past Medical History Cardiovascular: HTN Past Surgical History Past Surgical History: Total knee replacement (Left), Hysterectomy, Other (Right foot, Dr. Hogan, left femur fracture, Dr. Louis) Family History Family History: Other Social History Smoke: No ALCOHOL: rare Drugs: None Current Medications Current Medications Current Medications Non-Formulary Medication (Plecanatide (Trulance)) 1 tab DAILY PO ; Start 07/20/21 at 09:00; Status UNV Diltiazem HCl 125 mg/Sodium Chloride 125 ml @ 5 mls/hr CONT PRN IV PER PROTOCOL; Start 07/19/21 at 17:15; Status UNV Diltiazem HCl (Cardizem Iv Push) 10 mg 1X ONCE IVP ; Start 07/19/21 at 17:15; Stop 07/19/21 at 17:16; Status UNV Active Scripts Active Ibuprofen 800 Mg Tablet 800 Mg PO PRN TID PRN Reported Trulance (Plecanatide) 3 Mg Tablet 1 Tab PO DAILY 30 Days Prolia (Denosumab) 60 Mg/1 Ml Disp.syrin 1 Syr SQ [id number] 1 Days Imitrex (Sumatriptan Succinate) 100 Mg Tablet 100 Mg PO PRN PRN Not given while in hosp. May resume at home as directed as needed. Allergies Allergies: Coded Allergies: No Known Drug Allergies (Unverified , 05/29/15) ROS General: YES: Fatigue, Malaise; No: Chills, Night Sweats, Appetite, Other PSYCHOLOGICAL ROS: No: Anxiety, Behavioral Disorder, Concentration difficultie, Decreased libido, Depression, Disorientation, Hallucinations, Hostility, Irritablity, Memory difficulties, Mood Swings, Obsessive thoughts, Physical abuse, Sexual abuse, Sleep disturbances, Suicidal ideation, Other Eyes: No Blurry vision, No Decreased vision, No Double vision, No Dry eyes, No Excessive tearing, No Eye Pain, No Itchy Eyes, No Loss of vision, No Photophobia, No Scotomata, No Uses contacts, No Uses glasses, No Other HEENT: No: Heacaches, Visual Changes, Hearing change, Nasal congestion, Nasal discharge, Oral lesions, Sinus pain, Sore Throat, Epistaxis, Sneezing, Snoring, Tinnitus, Vertigo, Vocal changes, Other ALLERGY AND IMMUNOLOGY: No: Hives, Insect Bite Sensitivity, Itchy/Watery Eyes, Nasal Congestion, Post Nasal Drip, Seasonal Allergies, Other Hematological and Lymphatic: No: Bleeding Problems, Blood Clots, Blood Transfusions, Brusing, Night Sweats, Pallor, Swollen Lymph Nodes, Other ENDOCRINE: No: Breast Changes, Galactorrhea, Hair Pattern Changes, Hot Flashes, Malaise/lethargy, Mood Swings, Palpitations, Polydipsia/polyuria, Skin Changes, Temperature Intolerance, Unexpected Weight Changes, Other Breast: No New/Changing Breast Lumps, No Nipple changes, No Nipple discharge, No Other Respiratory: No: Cough, Hemoptysis, Orthopnea, Pleuritic Pain, Shortness of breath, SOB with excertion, Sputum Changes, Stridor, Tachypnea, Wheezing, Other Cardiovascular: No Chest Pain, No Palpitations, No Orthopnea, No Paroxysmal Noc. Dyspnea, No Edema, No Lt Headedness, No Other Gastrointestinal: No Nausea, No Vomiting, No Abdominal Pain, No Diarrhea, No Constipation, No Melena, No Hematochezia, No Other Genitourinary: No Dysuria, No Frequency, No Incontinence, No Hematuria, No Retention, No Discharge, No Urgency, No Pain, No Flank Pain, No Other, No , No , No , No , No , No , No Musculoskeletal: Yes Gait Disturbance, Yes Joint Pain; No Joint Stiffness, No Joint Swelling, No Muscle Pain, No Muscular Weakness, No Pain In:, No Swelling In:, No Other Neurological: No Behavorial Changes, No Bowel/Bladder ControlChng, No Confusion, No Dizziness, No Gait Disturbance, No Headaches, No Impaired Coord/balance, No Memory Loss, No Numbness/Tingling, No Seizures, No Speech Problems, No Tremors, No Visual Changes, No Weakness, No Other Skin: No Dry Skin, No Eczema, No Hair Changes, No Lumps, No Mole Changes, No Mottling, No Nail Changes, No Pruritus, No Rash, No Skin Lesion Changes, No Other, No Acne Physical Exam General: Alert, Oriented X3, Cooperative, moderate distress HEENT: Atraumatic, PERRLA, EOMI, Mucous membr. moist/pink Lungs: Clear to auscultation, Normal air movement Heart: irregularly irregular Abdomen: Normal bowel sounds, Soft, No tenderness, No hepatosplenomegaly, No masses Rectal Exam: not examined Extremities: No clubbing, No cyanosis, No edema, Normal pulses, Other (pain on left hip palpat) Skin: No rashes, No breakdown, No significant lesion Neuro: Normal speech, Strength at 5/5 X4 ext, Normal tone, Sensation intact, Cranial nerves 3-12 NL, Reflexes 2+ Psych/Mental Status: Mental status NL, Mood NL Images Images CHEST AP ONLY EXAMINATION: Chest radiograph. VIEWS: Single AP view of the chest COMPARISON: None available INDICATION:76 years, Female, pain. FINDINGS: Normal cardiomediastinal silhouette. No focal consolidation. No pleural effusion or pneumothorax. No acute osseous process. IMPRESSION: No acute cardiopulmonary process. Electronically signed by: Chirag Holly DO (07/19/2021 10:06 AM) [facility] DICTATED AND SIGNED BY: CHIRAG HOLLY DO DATE: 07/19/21 1004 CC: TOÑO CARSON MD; JENIFFER SANDOVAL MD ~ PATIENT: LUPE DIETRICH ACCOUNT: [id number] : 1945 LOCATION: ER AGE: 76 SEX: F EXAM STATUS: REG ER ORD. PHYSICIAN: JENIFFER SANDOVAL MD REASON: pain PROCEDURE: HIP LEFT 2V WITH PELVIS Left hip AP lateral and AP pelvis x-rays HISTORY: Left hip pain. FINDINGS: Suture anchors at the pubic bones adjacent of the pubic symphysis. ORIF with long intramedullary nail of the femur with femoral neck screw as well as a distal femoral interlocking screw bridging an old healed traumatic deformity of the trochanteric femur. No bone lysis surrounding the hardware to suggest loosening. No fracture or dislocation of the hip. Heterotopic ossification immediately above the greater trochanter of the femur. The soft tissues are normal. IMPRESSION: No acute osseous injury. ORIF of the left femur. See above. Electronically signed by: Harjinder Obrien MD (07/19/2021 10:45 AM) [facility] [place] DICTATED AND SIGNED BY: HARJINDER OBRIEN MD DATE: 07/19/21 1044 CC: TOÑO CARSON MD; JENIFFER SANDOVAL MD ~ PATIENT: LUPE DIETRICH ACCOUNT: [id number] : 1945 LOCATION: ER AGE: 76 SEX: F EXAM STATUS: REG ER ORD. PHYSICIAN: JENIFFER SANDOVAL MD REASON: fall, pain,HX OF VERTBROPLASTY 10 YRS AGO PROCEDURE: CT LUMBAR SPINE WO CONTRAST CT lumbar spine without contrast PQRS statement: CT scans at this facility use dose reduction including either automated exposure control, iterative reconstructions, and /or weight based radiation dosing via mA and kV modification when appropriate to reduce radiation dose to as low as reasonably achievable. HISTORY: Fall, back pain, history of vertebroplasty 10 years ago. COMPARISON: CT abdomen January 03, 2020. FINDINGS: Dextroconvex mild lumbar scoliosis. There is a chronic L1 vertebral compression fracture 25% height loss status post bone cement augmentation of the vertebra, there is chronic 2 mm of bony retropulsion, this is stable to prior imaging. Remainder of the lumbar spine demonstrates intact vertebral height and alignment. There is 2 mm anterolisthesis of L3 on L4 associated with disc disease and asymmetric left facet arthropathy with bony spurring. No acute fracture of lumbar spine. There is acute fracture of the left sacral ala extending inferior outside of the field of view. Lumbar disc bulges and facet spurring contributes to multiple levels of neural foraminal stenoses to a mild to moderate degree, and there may be spinal canal stenoses at L2-L3, L3-L4 and L4-L5 as well. There is mild stranding surrounding the left psoas muscle at the lower lumbar spine and upper pelvis. IMPRESSION: 1. Acute traumatic left sacral ala fractures. 2. No acute osseous injury of the lumbar spine. 3. Chronic treated L1 vertebral compression fracture stable to prior imaging. 4. There is mild retroperitoneal stranding surrounding the lower segment of the left psoas muscle to the upper pelvis at the iliacus muscle. 5. Lumbar scoliosis and disc disease as described above. VTE Prophylaxis Ordered VTE Prophylaxis Devices: Yes VTE Pharmacological Prophylaxi: Yes Assessment/Plan Assessment/Plan Atrial tachycardia with RVR -looks to be atrial fibrillation. Well schedule IV metoprolol as IV Cardizem is currently not available at this facility. Consult cardiology. Heparin GTT Left Sacral alar fracture - IV and PO pain regimen. consult PMR and ortho Fall at home - gait training program after surgical clearance Chronic back pain - prior L1 kyphoplasty Chronic right foot pain - s/p recent surgical correction with Dr. Hogan at [facility] Leukocytosis - likely reactive given above trauma FEN - Cardiac diet PPX - heparin FULL CODE Dispo - inpatient Justifications for Admission General Conditions Poss tachycardia?: Yes Justification for admission: Patient has tachycardia (> 100 beats per minute) which is not readily corrected by appropriate treatment within 12 to 24 hours. Other Justification PARRIS MOLINA MD Jul 19, 2021 17:21
[2021-07-19] MEDS ORDERED: ACETAMINOPHEN 325 MG TABLET. PO PRN (17:30)
[2021-07-19] MEDS ORDERED: HEPARIN for IV BOLUS 10,000 UNIT/10 ML VIAL. IV ONE (17:30)
[2021-07-19] MEDS ORDERED: HEPARIN for IV BOLUS 10,000 UNIT/10 ML VIAL. IV PRN (17:30)
[2021-07-19] MEDS ORDERED: fentaNYL PF VIAL 100 MCG/2 ML VIAL IVP PRN (17:30)
[2021-07-19] MEDS ORDERED: ONDANSETRON PF 4 MG/2 ML VIAL. IVP PRN (17:30)
[2021-07-19] MEDS ORDERED: HEPARIN 25,000UTS/250ML PREMIX 250 ML IV PRN (17:30)
[2021-07-19] MEDS ORDERED: POLYETHYLENE GLYCOL 3350 17 GM PACKET. PO PRN (17:30)
[2021-07-19] MEDS ORDERED: HYDROmorphone 2 MG/ML INJ. IVP PRN (18:00)
[2021-07-19] MEDS: HYDROcodone/APAP 5/325MG 1 TAB TABLET PO PRN (18:26)
[2021-07-19] MEDS: METOPROLOL IV PUSH 5 MG/5 ML VIAL. IVP SCH (18:27)
[2021-07-19 19:00] VITALS: BP 107/64
[2021-07-19] MEDS: PSYLLIUM HUSK (SUGAR FREE) 1 PKT PACKET PO SCH (21:27)
[2021-07-19 23:05] VITALS: BP 91/56
[2021-07-20] MEDS ORDERED: IV NORMAL SALINE 1000ML BAG 1,000 ML IV ONE ×2 (02:30→10:00)
[2021-07-20 03:05] VITALS: BP 83/61
[2021-07-20 03:09] LABS: BASO % 0 % (0-3); EOS # 0.2 x10^3/uL (0.0-0.7); EOS % 2 % (0-3); HEMATOCRIT 32.8 % (36.0-47.0); HEMOGLOBIN 10.8 g/dL (12.0-15.5); LYMPH # 1.3 x10^3/uL (1.0-4.8); LYMPH % 14 % (24-48); MEAN CORPUSCULAR HEMOGLOBIN 30 pg (25-35); MEAN CORPUSCULAR HGB CONC 33 g/dL (31-37); MEAN CORPUSCULAR VOLUME 91 fL (79-100); MONO # 0.5 x10^3/uL (0.0-1.1); MONO % 5 % (0-9); NEUT # 7.4 x10^3/uL (1.8-7.7); NEUT % 79 % (31-73); PLATELET COUNT 189 x10^3/uL (140-400); RED CELL DISTRIBUTION WIDTH 14.4 % (11.5-14.5); WHITE BLOOD COUNT 9.4 x10^3/uL (4.0-11.0)
[2021-07-20 03:27] LABS: ALBUMIN 2.7 g/dL (3.4-5.0); ALBUMIN/GLOBULIN RATIO 0.8 (1.0-1.7); CALCIUM 7.4 mg/dL (8.5-10.1); CREATININE 0.7 mg/dL (0.6-1.0); GFR 80.9; POTASSIUM 3.4 mmol/L (3.5-5.1); TOTAL BILIRUBIN 0.6 mg/dL (0.2-1.0); TOTAL PROTEIN 5.9 g/dL (6.4-8.2)
[2021-07-20] MEDS ORDERED: ALBUMIN HUMAN 5% 500 ML IV ONE (04:00)
[2021-07-20] MEDS: METOPROLOL IV PUSH 5 MG/5 ML VIAL. IVP SCH ×2 (05:45)
[2021-07-20] MEDS: HYDROcodone/APAP 5/325MG 1 TAB TABLET PO PRN ×3 (06:49→20:22)
[2021-07-20 07:00] VITALS: BP 81/54
[2021-07-20] MEDS: PLECANATIDE PO SCH (09:00)
[2021-07-20] MEDS: diphenhydrAMINE HCL 25 MG CAPSULE PO PRN (09:06)
--- NOTE | 2021-07-20 09:59 | PDOC2 ---
AUSTIN CASEY CLAIMS SUPPORT SPECIALIST 07/20/21 0959: CARDIAC CONSULT DATE OF CONSULT Date of Consult DATE: 07/20/21 TIME: 09:23 REASON FOR CONSULT Reason for Consult: new afib REFERRING PHYSICIAN Referring Physician: Vivienne SOURCE Source: Chart review, Patient HISTORY OF PRESENT ILLNESS HISTORY OF PRESENT ILLNESS This is a pleasant 76 yo female admitted for complains of fall. She had right foot surgery with screws and pins 6 weeks ago and has been wearing a special boot. She was walking 2 weeks ago and fell and broke one of her left finger and then the other day she was walking and fell hard on her butt and started having left hip pain where there was no fracture and intact ORIF femoral hardware with no obvious fracture. She did sustain sacral fracture. No associated seizure nor syncope nor arrhythmias or palpitations but mainly due balance issue her blaming it on the boot. Consult is for afib which I reviewed and it is not conclusive and presently on SR with occasional multifocal PVCs and PACs. No prior hx of arrhythmia, CVA, bleeding, VTE, and no prior CAD, nausea/vomiting or diarrhea. She typically walks about 2-3 miles per day for exercise. She has migraine without aura and has bouts of it but not long lasting suspecting from allergy and not needing imitrex to which she last took it 6 weeks ago. Denies chest pain or SOA. PAST MEDICAL HISTORY Cardiovascular: Other (low BP) Pulmonary: No pertinent hx CENTRAL NERVOUS SYSTEM: Migraine GI: Irritable bowel disease, Other (bowel obstruction) Heme/Onc: Other (thrombophlebitis but she denies this) Hepatobiliary: No pertinent hx Psych: No pertinent hx Musculoskeletal: Osteoarthritis ENT: Allergic Rhinitis Renal/: No pertinent hx Endocrine: Osteoporosis Dermatology: No pertinent hx PAST SURGICAL HISTORY Past Surgical History: Total knee replacement (left), Hysterectomy, Other (face lift, breasts implantstummy tuck bladder sling, bowel resection, left eye surgery) FAMILY HISTORY Family History noncontributory to CV SOCIAL HISTORY Smoke: No ALCOHOL: occassional Drugs: None Lives: with Family CURRENT MEDICATIONS CURRENT MEDICATIONS Current Medications Medications (Trade) Dose Ordered Sig/Magda Route PRN Reason Start Time Stop Time Status Last Admin Dose Admin Fentanyl Citrate (Fentanyl 2ml Vial) 25 mcg PRN Q3HRS PRN IVP SEVERE PAIN 7-10 07/19/21 17:30 07/19/21 22:54 Psyllium Hydrophilic Mucilloid (Metamucil Fiber Packet) 1 pkt QHS PO 07/19/21 21:00 07/19/21 21:27 Acetaminophen/ Hydrocodone Bitart (Lortab 5/325) 2 tab PRN Q6HRS PRN PO MODERATE PAIN, SEVERE PAIN 07/19/21 17:30 07/20/21 06:49 Metoprolol Tartrate (Lopressor Vial) 5 mg Q6HRS IVP 07/19/21 18:00 07/19/21 18:27 Heparin Sodium (Porcine) (Heparin Sodium) 3,400 unit 1X ONCE IV 07/19/21 17:30 07/19/21 17:36 DC 07/19/21 18:37 Heparin Sodium/ Dextrose 250 ml @ 6.816 mls/ hr CONT PRN IV PER PROTOCOL 07/19/21 17:30 07/19/21 18:52 Heparin Sodium (Porcine) (Heparin Sodium) 1,450 unit PRN Q6HRS PRN IV FOR UFH LEVEL LESS THAN 0.2 07/19/21 17:30 07/20/21 03:18 Sodium Chloride 1,000 ml @ 1,000 mls/hr 1X ONCE IV 07/20/21 02:30 07/20/21 03:29 DC 07/20/21 02:29 Albumin Human 500 ml @ 125 mls/hr 1X ONCE IV 07/20/21 04:00 07/20/21 07:59 DC 07/20/21 03:51 Diphenhydramine HCl (Benadryl) 25 mg PRN Q6HRS PRN PO ITCHING 07/20/21 08:45 07/20/21 09:06 ALLERGIES ALLERGIES: Coded Allergies: No Known Drug Allergies (Unverified , 05/29/15) ROS Review of System 14 point ROS evaluated with pertinent positives noted per HPI PHYSICAL EXAM General: Alert, Oriented X3, Cooperative, No acute distress HEENT: Atraumatic, Mucous membr. moist/pink Lungs: Clear to auscultation, Normal air movement Heart: Regular rate (SR/ST), Normal S1, Normal S2, No murmurs Abdomen: Soft, No tenderness Extremities: No cyanosis, No edema Skin: No breakdown, No significant lesion Neuro: Normal speech, Sensation intact Psych/Mental Status: Mental status NL, Mood NL MUSCULOSKELETAL: Osteoarthritic changes both hands VITALS/I&O VITALS/I&O: Vital Signs Date Time Temp Pulse Resp B/P (MAP) Pulse Ox O2 Delivery O2 Flow Rate FiO2 07/20/21 07:19 98 Room Air 2.0 07/20/21 07:00 98.6 111 16 81/54 (63) 98.6 I & O 07/19/21 07/19/21 07/20/21 15:00 23:00 07:00 Intake Total 480 ml 340 ml Balance 480 ml 340 ml LABS Lab: Laboratory Tests Test 07/19/21 17:40 07/20/21 01:30 Troponin I High Sensitivity 226 ng/L (4-50) H White Blood Count 9.4 x10^3/uL (4.0-11.0) Red Blood Count 3.60 x10^6/uL (3.50-5.40) Hemoglobin 10.8 g/dL (12.0-15.5) L Hematocrit 32.8 % (36.0-47.0) L Mean Corpuscular Volume 91 fL (79-100) Mean Corpuscular Hemoglobin 30 pg (25-35) Mean Corpuscular Hemoglobin Concent 33 g/dL (31-37) Red Cell Distribution Width 14.4 % (11.5-14.5) Platelet Count 189 x10^3/uL (140-400) Neutrophils (%) (Auto) 79 % (31-73) H Lymphocytes (%) (Auto) 14 % (24-48) L Monocytes (%) (Auto) 5 % (0-9) Eosinophils (%) (Auto) 2 % (0-3) Basophils (%) (Auto) 0 % (0-3) Neutrophils # (Auto) 7.4 x10^3/uL (1.8-7.7) Lymphocytes # (Auto) 1.3 x10^3/uL (1.0-4.8) Monocytes # (Auto) 0.5 x10^3/uL (0.0-1.1) Eosinophils # (Auto) 0.2 x10^3/uL (0.0-0.7) Basophils # (Auto) 0.0 x10^3/uL (0.0-0.2) Heparin Anti-Xa Act, Unfractionated < 0.10 IU/mL (0.30-0.70) L Sodium Level 138 mmol/L (136-145) Potassium Level 3.4 mmol/L (3.5-5.1) L Chloride Level 104 mmol/L (98-107) Carbon Dioxide Level 25 mmol/L (21-32) Anion Gap 9 (6-14) Blood Urea Nitrogen 14 mg/dL (7-20) Creatinine 0.7 mg/dL (0.6-1.0) Estimated GFR (Cockcroft-Gault) 80.9 BUN/Creatinine Ratio 20 (6-20) Glucose Level 127 mg/dL (70-99) H Calcium Level 7.4 mg/dL (8.5-10.1) L Total Bilirubin 0.6 mg/dL (0.2-1.0) Aspartate Amino Transferase (AST) 22 U/L (15-37) Alanine Aminotransferase (ALT) 26 U/L (14-59) Alkaline Phosphatase 66 U/L (46-116) Total Protein 5.9 g/dL (6.4-8.2) L Albumin 2.7 g/dL (3.4-5.0) L Albumin/Globulin Ratio 0.8 (1.0-1.7) L Thyroid Stimulating Hormone (TSH) 3.906 uIU/mL (0.358-3.74) H Laboratory Tests 07/20/21 01:30 Laboratory Tests 07/20/21 01:30 ASSESSMENT/PLAN ASSESSMENT/PLAN 1. Traumatic mechanical fall: no syncope. due to balance issue associated with boot use 2. Acute sacral fracture 3. Arrhythmia: was suspected for AFIB overnight. EKG reviewed sinus tachycardia, presently SR with PACs and PVCs 4. Hypotension: asymptomatic, reports her BP is typically low 5. Hx of migraine: last use of imitrex about 6 weeks ago 6. S/P right foot surgery: 6 weeks ago 7. Mild troponin elevation: suspect demand mediated, type 2 8. UTI: per PCP Recommendations 1. Possible kyphoplasty. Will obtain DDIMER, if this is significantly elevated then would consider for CTA chest to rule out PE given events tachycardia and low BP with recent right foot surgery and at some point needing O2 2. Start on ASA. DC metoprolol. If AFIB is suspected then will consider for digoxin. MCOT to ascertain further. Repeat EKG 3. Start IVF and replace K. Will obtain orthostatic readings 4. TTE and check CK and FLP 5. Will consider for outpt stress test MEME CARBALLO MD 07/20/212013: CARDIAC CONSULT ASSESSMENT/PLAN ASSESSMENT/PLAN Patient seen and examined She denies chest pain, lightheadedness or shortness of breath. I agree with our nurse practitioners assessment and plan. Traumatic mechanical fall: no syncope. due to balance issue associated with boot use Acute sacral fracture. Arrhythmia: was suspected for AFIB overnight. EKG reviewed sinus tachycardia, presently SR with PACs and PVCs. Possible outpatient monitor. Hypotension: asymptomatic, reports her BP is typically low Hx of migraine: last use of imitrex about 6 weeks ago S/P right foot surgery: 6 weeks ago Mild troponin elevation: suspect demand mediated, type 2. We will check an ec hocardiogram. Possible outpatient ischemia work-up. UTI: per PCP AUSTIN CASEY APRN Jul 20, 2021 09:59 MEME CARBALLO MD Jul 20, 2021 20:14
--- NOTE | 2021-07-20 10:20 | EKG ---
[facility] [address] [place] [address] Test Date: 2021-07-20 Test Time: 10:13:22 Pat Name: LUPE DIETRICH Department: Room: [facility] Gender: F Teacher Dancing: VIKASH : 1945 Requested By: AUSTIN CASEY Order Number: [id number] Reading MD: You Alvarez Measurements Intervals [place] Rate: 83 P: 28 CO: 154 QRS: 16 QRSD: 88 T: 247 QT: 398 QTc: 474 Interpretive Statements SINUS RHYTHM VENTRICULAR PREMATURE COMPLEX(ES) ATRIAL PREMATURE COMPLEX(ES) NON SPECIFIC ST-T WAVE CHANGES Electronically Signed On 07-21-2021 16:41:35 CDT by You Alvarez
--- NOTE | 2021-07-20 10:28 | CONS ---
DATE OF CONSULTATION: 07/20/2021 LOCATION: She is in room 672. ATTENDING PHYSICIAN: Favio Palafox MD REASON FOR CONSULTATION: The patient was seen at the request of Dr. Palafox for rehab evaluation. HISTORY OF PRESENT ILLNESS: This is a 76-year-old right-handed female, the patient with known chronic lower back pain, migraines, status post left ankle surgery done by Dr. Hogan at [facility] about 7 weeks ago and has been using a Cam boot and quad cane to get around and she apparently fell on the morning of 07/18/2021 and landed on her left buttock. The patient is since then having pain in her left buttock area. She was seen in the Emergency room at [facility] on 07/19/2021 and had x-rays and CT scan which revealed acute left sacral ala fracture with mild retroperitoneal stranding of left psoas muscle and she was also noted with tachycardia and atrial fibrillation with RVR with left axis deviation and left anterior fascicular block. The patient being monitored in PCU. The patient admits left buttock area pain. The patient is status post ORIF of left hip and left femur fracture and also left total knee arthroplasty and L1 kyphoplasty for compression fracture in the past. The patient had chronic left ankle pain, which is better since she had surgery done about 7 weeks ago. She had followup appointment to see Dr. Hogan in the next 2 weeks. The patient is not known allergic to any medications. She admits generalized itching of her body since last night. The patient apparently received metoprolol and Cardizem and albumin. The patient lives with her , had stairs for her to manage and she has been independent with her mobility and self-care skill prior to the recent hospitalization. PHYSICAL EXAMINATION: Today revealed a middle-aged female. She is alert, oriented to time, place, person and circumstance, follows commands appropriately, moves all 4 extremities voluntarily where she has 4+/5 grade muscle strength. Deep tendon reflexes are 1 to 2+ and symmetrical with absent left ankle jerk and decreased right ankle jerk. She had equal perception of touch and pinprick sensation bilaterally. She had localized tenderness to palpation over left sacral joint area and adjoining left buttock and some pain on external rotation of her left hip joint. She complains of pain while trying to roll over to the right side. I have not tested her transfer for ambulation skills at this time. Her skin is intact. ASSESSMENT: Acute left sacral ala fracture from recent fall in a patient with recent left ankle surgery and has been using Cam boot to walk using a quad cane. Also, chronic lower back pain from degenerative disk disease and degenerative joint disease of lumbar vertebrae without any clinical evidence of ongoing lumbar radiculopathy, status post previous L1 kyphoplasty, left total knee arthroplasty, open reduction and internal fixation of left femoral neck and left femoral shaft fracture. The patient with known migraines. RECOMMENDATIONS: To ask Interventional Radiology to see her for consultation of left sacroplasty and home with outpatient followup when medically stable. Dr. Palafox, I appreciate asking me to participate in care of this interesting patient. I will be glad to see her for followup with you on as needed basis. JEANNA DR: SIMON/mode TID: [id number]
[2021-07-20 10:31] LABS: CHOLESTEROL/HDL RATIO 2.7
[2021-07-20 11:00] VITALS: BP 87/61
[2021-07-20] MEDS ORDERED: POTASSIUM CHLORIDE 20 MEQ TABLET.ER. PO ONE (11:00)
[2021-07-20] MEDS: ASPIRIN ENTERIC COATED 81 MG TABLET.DR. PO SCH (12:29)
--- NOTE | 2021-07-20 13:55 | PDOC ---
[employer] PROGRESS NOTE Date of Service DOS: DATE: 07/20/21 TIME: 13:53 Chief Complaint Chief Complaint Atrial tachycardia with RVR -looks to be atrial fibrillation. Well schedule IV metoprolol as IV Cardizem is currently not available at this facility. Consult cardiology. Heparin GTT Left Sacral alar fracture - IV and PO pain regimen. consult PMR and ortho Fall at home - gait training program after surgical clearance Chronic back pain - prior L1 kyphoplasty Chronic right foot pain - s/p recent surgical correction with Dr. Hogan at [facility] Leukocytosis - likely reactive given above trauma History of Present Illness History of Present Illness 07/20: Patient seen and evaluated bedside. She is in rate controlled A. fib. Pain controlled medication. She demonstrated walking for me, even though did not ask. Spoke with her daughter by phone and reassured her that her mother is doing well. I believe she is scheduled for sacroplasty tomorrow or the next day, per Dr. Ontiveros. Vitals/I&O Vitals/I&O: Vital Signs Date Time Temp Pulse Resp B/P (MAP) Pulse Ox O2 Delivery O2 Flow Rate FiO2 07/20/21 11:00 98.1 108 18 87/61 (70) 97 Nasal Cannula 2.0 98.1 I & O 07/19/21 07/19/21 07/20/21 15:00 23:00 07:00 Intake Total 480 ml 340 ml Balance 480 ml 340 ml Physical Exam General: Alert, Oriented X3, Cooperative, mild distress Heart: Other (Irregularly irregular, tachycardic) Lungs: Clear Abdomen: Normal bowel sounds, Soft, No tenderness, No hepatosplenomegaly, No masses Extremities: No clubbing, No cyanosis, No edema, Normal pulses, Other (pain on left hip palpat) Skin: No rashes, No breakdown, No significant lesion Labs Labs: Laboratory Tests Test 07/19/21 17:40 07/20/21 01:30 Troponin I High Sensitivity 226 ng/L (4-50) White Blood Count 9.4 x10^3/uL (4.0-11.0) Red Blood Count 3.60 x10^6/uL (3.50-5.40) Hemoglobin 10.8 g/dL (12.0-15.5) Hematocrit 32.8 % (36.0-47.0) Mean Corpuscular Volume 91 fL (79-100) Mean Corpuscular Hemoglobin 30 pg (25-35) Mean Corpuscular Hemoglobin Concent 33 g/dL (31-37) Red Cell Distribution Width 14.4 % (11.5-14.5) Platelet Count 189 x10^3/uL (140-400) Neutrophils (%) (Auto) 79 % (31-73) Lymphocytes (%) (Auto) 14 % (24-48) Monocytes (%) (Auto) 5 % (0-9) Eosinophils (%) (Auto) 2 % (0-3) Basophils (%) (Auto) 0 % (0-3) Neutrophils # (Auto) 7.4 x10^3/uL (1.8-7.7) Lymphocytes # (Auto) 1.3 x10^3/uL (1.0-4.8) Monocytes # (Auto) 0.5 x10^3/uL (0.0-1.1) Eosinophils # (Auto) 0.2 x10^3/uL (0.0-0.7) Basophils # (Auto) 0.0 x10^3/uL (0.0-0.2) Heparin Anti-Xa Act, Unfractionated < 0.10 IU/mL (0.30-0.70) Sodium Level 138 mmol/L (136-145) Potassium Level 3.4 mmol/L (3.5-5.1) Chloride Level 104 mmol/L (98-107) Carbon Dioxide Level 25 mmol/L (21-32) Anion Gap 9 (6-14) Blood Urea Nitrogen 14 mg/dL (7-20) Creatinine 0.7 mg/dL (0.6-1.0) Estimated GFR (Cockcroft-Gault) 80.9 BUN/Creatinine Ratio 20 (6-20) Glucose Level 127 mg/dL (70-99) Calcium Level 7.4 mg/dL (8.5-10.1) Total Bilirubin 0.6 mg/dL (0.2-1.0) Aspartate Amino Transf (AST/SGOT) 22 U/L (15-37) Alanine Aminotransferase (ALT/SGPT) 26 U/L (14-59) Alkaline Phosphatase 66 U/L (46-116) Creatine Kinase 90 U/L (26-192) Total Protein 5.9 g/dL (6.4-8.2) Albumin 2.7 g/dL (3.4-5.0) Albumin/Globulin Ratio 0.8 (1.0-1.7) Triglycerides Level 104 mg/dL (0-150) Cholesterol Level 181 mg/dL (0-200) LDL Cholesterol, Calculated 92 mg/dL (0-100) VLDL Cholesterol, Calculated 21 mg/dL (0-40) Non-HDL Cholesterol Calculated 113 mg/dL (0-129) HDL Cholesterol 68 mg/dL (40-60) Cholesterol/HDL Ratio 2.7 Thyroid Stimulating Hormone (TSH) 3.906 uIU/mL (0.358-3.74) Comment Review of Relevant I have reviewed the following items jordin (where applicable) has been applied. Medications: Current Medications Medications (Trade) Dose Ordered Sig/Magda Route PRN Reason Start Time Stop Time Status Last Admin Dose Admin Fentanyl Citrate (Fentanyl 2ml Vial) 25 mcg PRN Q3HRS PRN IVP SEVERE PAIN 7-10 07/19/21 17:30 07/19/21 22:54 Psyllium Hydrophilic Mucilloid (Metamucil Fiber Packet) 1 pkt QHS PO 07/19/21 21:00 07/19/21 21:27 Acetaminophen/ Hydrocodone Bitart (Lortab 5/325) 2 tab PRN Q6HRS PRN PO MODERATE PAIN, SEVERE PAIN 07/19/21 17:30 07/20/21 06:49 Metoprolol Tartrate (Lopressor Vial) 5 mg Q6HRS IVP 07/19/21 18:00 07/20/21 09:53 DC 07/19/21 18:27 Heparin Sodium (Porcine) (Heparin Sodium) 3,400 unit 1X ONCE IV 07/19/21 17:30 07/20/21 10:14 DC 07/19/21 18:37 Heparin Sodium/ Dextrose 250 ml @ 6.816 mls/ hr CONT PRN IV PER PROTOCOL 07/19/21 17:30 07/20/21 10:14 DC 07/19/21 18:52 Heparin Sodium (Porcine) (Heparin Sodium) 1,450 unit PRN Q6HRS PRN IV FOR UFH LEVEL LESS THAN 0.2 07/19/21 17:30 07/20/21 03:18 Sodium Chloride 1,000 ml @ 1,000 mls/hr 1X ONCE IV 07/20/21 02:30 07/20/21 03:29 DC 07/20/21 02:29 Albumin Human 500 ml @ 125 mls/hr 1X ONCE IV 07/20/21 04:00 07/20/21 07:59 DC 07/20/21 03:51 Diphenhydramine HCl (Benadryl) 25 mg PRN Q6HRS PRN PO ITCHING 07/20/21 08:45 07/20/21 09:06 Aspirin (Ecotrin) 81 mg DAILYWBKFT PO 07/20/21 12:00 07/20/21 12:29 Potassium Chloride (Klor-Con) 20 meq 1X ONCE PO 07/20/21 11:00 07/20/21 11:01 DC 07/20/21 10:22 Sodium Chloride 1,000 ml @ 75 mls/hr 1X ONCE IV 07/20/21 10:00 07/20/21 23:19 07/20/21 10:22 Justifications for Admission General Conditions Poss tachycardia?: Yes Justification for admission: Patient has tachycardia (> 100 beats per minute) which is not readily corrected by appropriate treatment within 12 to 24 hours. Other Justification CARLI CHO MD Jul 20, 2021 13:55
[2021-07-20 15:00] VITALS: BP 117/62
--- NOTE | 2021-07-20 16:22 | NUR ---
SS following for discharge planning. SS reviewed pt chart and discussed with pt RN. Pt is from home with spouse and is currently requiring oxygen at two liters nasal canula. Cardiology and Dr. Flores consulted. PT/OT ordered. SS will continue to follow for discharge planning.
[2021-07-20 19:59] VITALS: BP 109/62
[2021-07-20] MEDS: PSYLLIUM HUSK (SUGAR FREE) 1 PKT PACKET PO SCH (20:24)
--- NOTE | 2021-07-20 20:51 | NUR ---
[facility] only recieved 1 tab. scanning error
[2021-07-20] MEDS ORDERED: CONTRAST GIVEN. MC PRN (22:45)
[2021-07-20] MEDS ORDERED: IOHEXOL 350 MG/ML 100 ML VIAL. IV ONE (23:00)
[2021-07-20 23:25] VITALS: BP 119/57
--- NOTE | 2021-07-20 23:37 | RAD ---
Study: CT CHEST WITH CONTRAST - PULMONARY ANGIOGRAM History: Elevated d-dimer. Atrial fibrillation. Pulmonary embolism. Comparison: Correlation is made to a CT abdomen/pelvis from 10/15/2020 Technique: Helical CT of the chest performed after the administration of 100 cc Omnipaque 350 intrav enous contrast and timed for angiographic evaluation of the pulmonary arteries per PE protocol. Coron al and sagittal 3D MIP reformations were obtained. One or more of the following individualized dose reduction techniques were utilized for this examinat ion: 1. Automated exposure control 2. Adjustment of the mA and/or kV according to patient size 3. Use of iterative reconstruction technique. Findings: Pulmonary Arteries: No main, lobar or segmental pulmonary embolism. Main pulmonary artery caliber is within normal limits. Heart/Systemic Vasculature: Scattered calcified and noncalcified atheromatous plaque with probable co ronary artery involvement. No aortic aneurysm or dissection. Mediastinum: A few mildly enlarged mediastinal and hilar lymph nodes such as right hilar on image 82 series 3 measuring 1.1 cm AP and at the aortopulmonic window measuring 1 cm transverse. Lungs: Trace bilateral pleural effusions. Mild interlobular septal prominence. Mild atelectasis. A fe w millimetric pulmonary nodules such as left upper lobe on image 61 series 3. Generalized bronchial w all thickening mainly at the lower lungs. No central airway opacification. Neck/Axilla/Body Wall: Subcentimeter left thyroid lobe nodule not meeting size criteria for dedicated follow-up. Unremarkable axilla. Bilateral breast implants. Upper Abdomen: No significant incidental finding. Bones: Osteopenia. Multifocal degenerative changes to include the spine and shoulders. Augmented L1 c ompression deformity. No suspicious vertebral body height loss. Miscellaneous: None. IMPRESSION: 1. No main, lobar or segmental pulmonary embolism. 2. Manifestations of volume overload with interstitial edema and trace pleural effusions. 3. A few mildly enlarged mediastinal and hilar lymph nodes. A reactive etiology is favored most like ly in the absence of a known malignancy. 4. Additional chronic observations outlined in the body of the report. Electronically signed by: LUCIO PAREKH MD (07/20/2021 11:34 PM) [facility]
[2021-07-21] VITALS (12 sets, daily range): BP systolic 100–142; BP diastolic 58–84
--- NOTE | 2021-07-21 03:18 | NUR ---
notified of patients CT results. N/O is d/c IV fluids. pt is experiencing no sob
[2021-07-21 06:38] LABS: PROTHROMBIN TIME PATIENT 13.5 SEC (11.7-14.0)
[2021-07-21] MEDS ORDERED: LIDOCAINE WITH 8.4% SOD BICARB 3 ML DISP.SYRIN. ONE (07:56)
[2021-07-21] MEDS: ASPIRIN ENTERIC COATED 81 MG TABLET.DR. PO SCH (08:00)
[2021-07-21] MEDS ORDERED: ceFAZolin SODIUM IV Push 1 GM VIAL. IVP ONE ×2 (08:29→09:30)
[2021-07-21] MEDS ORDERED: fentaNYL PF VIAL 100 MCG/2 ML VIAL ONE (08:29)
[2021-07-21] MEDS ORDERED: MIDAZOLAM HCL/PF 2 MG/2 ML VIAL. ONE (08:29)
[2021-07-21] MEDS: PLECANATIDE PO SCH (08:47)
[2021-07-21] MEDS ORDERED: LIDOCAINE WITH 8.4% SOD BICARB 3 ML DISP.SYRIN. IJ ONE (09:30)
[2021-07-21] MEDS ORDERED: fentaNYL PF VIAL 100 MCG/2 ML VIAL IV ONE (09:30)
[2021-07-21] MEDS ORDERED: MIDAZOLAM HCL/PF 2 MG/2 ML VIAL. IV ONE (09:30)
--- NOTE | 2021-07-21 09:59 | RAD ---
CT-guided, left sacroplasty 07/21/2021 INDICATION: Pathologic left sacral alar fracture secondary to osteoporosis with severe pain, limiting activities of daily living, not allowing weightbearing Consent: The procedure was explained in its entirety to the patient or the patients designated repres entative by a member of the treatment team, including a discussion of the risks, benefits and commonl y accepted alternatives to the procedure, as well as the expected consequences of no therapy whatsoev er. Discussion of the risks included, but was not limited to, those that are most frequent and thos e that are rare but possibly severe or life-threatening, as well as the possibility of unforeseen com plications. The patient was prepped and draped using maximum sterile technique, including the use of: Current fabiola deline approved cutaneous antisepsis, a large sterile sheet to establish a sterile field. Additionall y the sawmilling operator wore a hat, mask, sterile gloves, a sterile gown during the period Pre-procedural anti biotics were administered. Sedation: The procedure was performed under conscious sedation including continuous cardiopulmonary m onitoring via a dedicated sedation nurse. Dxpo-jw-flty sedation time: 50 minutes 1% lidocaine was administered for local anesthesia. Under intermittent CT guidance an 11 gauge needle was introduced into the left sacrum directed towards the ala. Once position was confirmed with CT, methylmethacrylate bone cement was slowly administered under intermittent CT guidance. Once adequate filling had been achieved . Needle cannula were removed. Manual pressure was held. Repeat CT demonstr ates good distribution of cement without evidence of extravasation or other complication. Sterile alex ssings were applied. IMPRESSION: CT-guided left sacroplasty CT DOSING PQRS STATEMENT: One or more of the following individualized dose reduction techniques were utilized for this examinat ion: 1. Automated exposure control 2. Adjustment of the mA and/or kV according to patient size 3. Use of iterative reconstruction technique Electronically signed by: Avelino Ontiveros MD (07/21/2021 9:56 AM) [id number]
[2021-07-21] MEDS: diphenhydrAMINE HCL 25 MG CAPSULE PO PRN (11:09)
--- NOTE | 2021-07-21 12:12 | PDOC ---
AUSTIN CASEY ERP MANAGER 07/21/21 1212: CARDIO Progress Notes Date and Time Date of Service 07/21/2021 Time of Evaluation 1200 Subjective Subjective: No Chest Pain, No shortness of breath, No Palpitations Vitals Vitals Vital Signs Date Time Temp Pulse Resp B/P (MAP) Pulse Ox O2 Delivery O2 Flow Rate FiO2 07/21/21 09:58 16 96 Room Air 07/21/21 09:28 2.0 07/21/21 09:23 98 07/21/21 07:00 98.6 126/70 (88) 98.6 Weight Weight [ ] Input and Output Intake and Output Intake and Output 07/21/21 07:00 Intake Total 780 ml Balance 780 ml Intake Oral 780 ml # Voids 3 Laboratory Labs Laboratory Tests Test 07/20/21 19:30 07/21/21 05:05 D-Dimer (Gia) 3.55 ug/mlFEU (0.00-0.50) Prothrombin Time 13.5 SEC (11.7-14.0) Prothromb Time International Ratio 1.1 (0.8-1.1) Activated Partial Thromboplast Time 28 SEC (24-38) Physical Exam HEENT: Neck Supple W Full Motion Chest: Symmetric LUNGS: Other (diminished bases) Heart: RRR (SR), irregularly irregular Abdomen: Soft N/T Extremities: No Edema, No Calf Tenderness Neurology: alert, oriented, follow commands Assessment Assessment 1. Traumatic mechanical fall: no syncope. due to balance issue associated with boot use 2. Acute sacral fracture: S/P sacroplasty 3. Arrhythmia: was suspected for AFIB overnight. EKG reviewed sinus tachycardia, presently SR with PACs and PVCs. Maintaining SR 4. Hypotension: asymptomatic, reports her BP is typically low. BP better today 5. Hx of migraine: last use of imitrex about 6 weeks ago 6. S/P right foot surgery: 6 weeks ago 7. Mild troponin elevation: suspect demand mediated, type 2. CTA chest revealed no PE but with CHF 8. UTI: per PCP 9. Suspect diastolic CHF: appears compensated Recommendations 1. ASA. DC metoprolol would not be able to tolerate presently due to BP being marginal. If AFIB is suspected then will consider for digoxin. MCOT to ascertain further 2. BMP, repeat trop, pro NT BNP today 3. TTE pending 4. Will consider for outpt ischemic workup Justicifation of Admission Dx: Justifications for Admission: Justification of Admission Dx: Yes MEME CARBALLO MD 07/21/21 1550: CARDIO Progress Notes Assessment Assessment Patient seen and examined She is feeling somewhat better today. I agree with our nurse practitioners assessment and plan. Traumatic mechanical fall: no syncope. due to balance issue associated with boot use Acute sacral fracture: S/P sacroplasty Arrhythmia: was suspected for AFIB overnight. EKG reviewed sinus tachycardia, presently SR with PACs and PVCs. Maintaining SR. holding beta-salomón secondary to marginal blood pressure. Hypotension: asymptomatic, reports her BP is typically low. BP better today Hx of migraine: last use of imitrex about 6 weeks ago S/P right foot surgery: 6 weeks ago Mild troponin elevation: suspect demand mediated, type 2. CTA chest revealed no PE but with CHF UTI: per PCP Consider diastolic CHF: appears compensated AUSTIN CASEY APRN Jul 21, 2021 12:12 MEME CARBALLO MD Jul 21, 2021 15:50
[2021-07-21 12:19] LABS: CALCIUM 7.3 mg/dL (8.5-10.1); CREATININE 0.5 mg/dL (0.6-1.0); GFR 119.3; POTASSIUM 4.2 mmol/L (3.5-5.1)
--- NOTE | 2021-07-21 13:46 | PDOC ---
[facility] PROGRESS NOTE Date of Service DOS: DATE: 07/21/21 TIME: 13:44 Chief Complaint Chief Complaint Atrial tachycardia with RVR -looks to be atrial fibrillation. Well schedule IV metoprolol as IV Cardizem is currently not available at this facility. Consult cardiology. Heparin GTT Left Sacral alar fracture - IV and PO pain regimen. consult PMR and ortho Fall at home - gait training program after surgical clearance Chronic back pain - prior L1 kyphoplasty Chronic right foot pain - s/p recent surgical correction with Dr. Hogan at [facility] Leukocytosis - likely reactive given above trauma History of Present Illness History of Present Illness 07/21: Patient seen with at bedside. She had sacroplasty yesterday and notes significant mental functional improvement. Patient and both feel stable discharging home with self-care today. Greater than 30 minutes spent managing discharge this patient. 07/20: Patient seen and evaluated bedside. She is in rate controlled A. fib. Pain controlled medication. She demonstrated walking for me, even though did not ask. Spoke with her daughter by phone and reassured her that her mother is doing well. I believe she is scheduled for sacroplasty tomorrow or the next day, per Dr. Ontiveros. Vitals/I&O Vitals/I&O: Vital Signs Date Time Temp Pulse Resp B/P (MAP) Pulse Ox O2 Delivery O2 Flow Rate FiO2 07/21/21 11:15 98.9 82 16 109/70 (83) 96 Room Air 2.0 98.9 I & O 07/20/21 07/20/21 07/21/21 15:00 23:00 07:00 Intake Total 360 ml 180 ml 240 ml Balance 360 ml 180 ml 240 ml Physical Exam General: Alert, Oriented X3, Cooperative, No acute distress Heart: Regular rate (SR/ST), Normal S1, Normal S2, No murmurs Lungs: Clear Abdomen: Soft, No tenderness Extremities: No cyanosis, No edema Skin: No breakdown, No significant lesion Labs Labs: Laboratory Tests Test 07/20/21 19:30 07/21/21 05:00 07/21/21 05:05 D-Dimer (Gia) 3.55 ug/mlFEU (0.00-0.50) Troponin I High Sensitivity 98 ng/L (4-50) Prothrombin Time 13.5 SEC (11.7-14.0) Prothromb Time International Ratio 1.1 (0.8-1.1) Activated Partial Thromboplast Time 28 SEC (24-38) Sodium Level 141 mmol/L (136-145) Potassium Level 4.2 mmol/L (3.5-5.1) Chloride Level 110 mmol/L (98-107) Carbon Dioxide Level 25 mmol/L (21-32) Anion Gap 6 (6-14) Blood Urea Nitrogen 12 mg/dL (7-20) Creatinine 0.5 mg/dL (0.6-1.0) Estimated GFR (Cockcroft-Gault) 119.3 Glucose Level 94 mg/dL (70-99) Calcium Level 7.3 mg/dL (8.5-10.1) IW-Jwg-[id number]-Type Natriuretic Peptide 6448 pg/mL (0-449) Comment Review of Relevant I have reviewed the following items jordin (where applicable) has been applied. Medications: Current Medications Medications (Trade) Dose Ordered Sig/Magda Route PRN Reason Start Time Stop Time Status Last Admin Dose Admin Iohexol (Omnipaque 350 Mg/ml) 100 ml 1X ONCE IV 07/20/21 23:00 07/20/21 23:01 DC 07/20/21 23:18 Lidocaine HCl (Buffered Lidocaine 1%) 3 ml 1X ONCE IJ 07/21/21 09:30 07/21/21 09:31 DC 07/21/21 09:29 Midazolam HCl (Versed) 2 mg 1X ONCE IV 07/21/21 09:30 07/21/21 09:31 DC 07/21/21 09:29 Fentanyl Citrate (Fentanyl 2ml Vial) 100 mcg 1X ONCE IV 07/21/21 09:30 07/21/21 09:31 DC 07/21/21 09:28 Cefazolin Sodium (Ancef) 1 gm 1X ONCE IVP 07/21/21 09:30 07/21/21 09:31 DC 07/21/21 09:29 Justifications for Admission General Conditions Poss tachycardia?: Yes Justification for admission: Patient has tachycardia (> 100 beats per minute) which is not readily corrected by appropriate treatment within 12 to 24 hours. Other Justification CARLI CHO MD Jul 21, 2021 13:46
--- NOTE | 2021-07-21 13:51 | PDOC3 ---
Discharge Summary Visit Information Date of Admission: Jul 19, 2021 Date of Discharge: Jul 21, 2021 Brief Hospital Course Allergies Allergies Coded Allergies Type Severity Reaction Last Updated Verified No Known Drug Allergies 05/29/15 No Vital Signs Vital Signs Date Time Temp Pulse Resp B/P (MAP) Pulse Ox O2 Delivery O2 Flow Rate FiO2 07/21/21 11:15 98.9 82 16 109/70 (83) 96 Room Air 2.0 98.9 Lab Results Laboratory Tests Test 07/19/21 17:40 07/20/21 01:30 07/20/21 19:30 07/21/21 05:00 Troponin I High Sensitivity 226 ng/L (4-50) 98 ng/L (4-50) White Blood Count 9.4 x10^3/uL (4.0-11.0) Red Blood Count 3.60 x10^6/uL (3.50-5.40) Hemoglobin 10.8 g/dL (12.0-15.5) Hematocrit 32.8 % (36.0-47.0) Mean Corpuscular Volume 91 fL (79-100) Mean Corpuscular Hemoglobin 30 pg (25-35) Mean Corpuscular Hemoglobin Concent 33 g/dL (31-37) Red Cell Distribution Width 14.4 % (11.5-14.5) Platelet Count 189 x10^3/uL (140-400) Neutrophils (%) (Auto) 79 % (31-73) Lymphocytes (%) (Auto) 14 % (24-48) Monocytes (%) (Auto) 5 % (0-9) Eosinophils (%) (Auto) 2 % (0-3) Basophils (%) (Auto) 0 % (0-3) Neutrophils # (Auto) 7.4 x10^3/uL (1.8-7.7) Lymphocytes # (Auto) 1.3 x10^3/uL (1.0-4.8) Monocytes # (Auto) 0.5 x10^3/uL (0.0-1.1) Eosinophils # (Auto) 0.2 x10^3/uL (0.0-0.7) Basophils # (Auto) 0.0 x10^3/uL (0.0-0.2) Heparin Anti-Xa Act, Unfractionated < 0.10 IU/mL (0.30-0.70) Sodium Level 138 mmol/L (136-145) Potassium Level 3.4 mmol/L (3.5-5.1) Chloride Level 104 mmol/L (98-107) Carbon Dioxide Level 25 mmol/L (21-32) Anion Gap 9 (6-14) Blood Urea Nitrogen 14 mg/dL (7-20) Creatinine 0.7 mg/dL (0.6-1.0) Estimated GFR (Cockcroft-Gault) 80.9 BUN/Creatinine Ratio 20 (6-20) Glucose Level 127 mg/dL (70-99) Calcium Level 7.4 mg/dL (8.5-10.1) Total Bilirubin 0.6 mg/dL (0.2-1.0) Aspartate Amino Transf (AST/SGOT) 22 U/L (15-37) Alanine Aminotransferase (ALT/SGPT) 26 U/L (14-59) Alkaline Phosphatase 66 U/L (46-116) Creatine Kinase 90 U/L (26-192) Total Protein 5.9 g/dL (6.4-8.2) Albumin 2.7 g/dL (3.4-5.0) Albumin/Globulin Ratio 0.8 (1.0-1.7) Triglycerides Level 104 mg/dL (0-150) Cholesterol Level 181 mg/dL (0-200) LDL Cholesterol, Calculated 92 mg/dL (0-100) VLDL Cholesterol, Calculated 21 mg/dL (0-40) Non-HDL Cholesterol Calculated 113 mg/dL (0-129) HDL Cholesterol 68 mg/dL (40-60) Cholesterol/HDL Ratio 2.7 Thyroid Stimulating Hormone (TSH) 3.906 uIU/mL (0.358-3.74) D-Dimer (Gia) 3.55 ug/mlFEU (0.00-0.50) Test 07/21/21 05:05 Prothrombin Time 13.5 SEC (11.7-14.0) Prothromb Time International Ratio 1.1 (0.8-1.1) Activated Partial Thromboplast Time 28 SEC (24-38) Sodium Level 141 mmol/L (136-145) Potassium Level 4.2 mmol/L (3.5-5.1) Chloride Level 110 mmol/L (98-107) Carbon Dioxide Level 25 mmol/L (21-32) Anion Gap 6 (6-14) Blood Urea Nitrogen 12 mg/dL (7-20) Creatinine 0.5 mg/dL (0.6-1.0) Estimated GFR (Cockcroft-Gault) 119.3 Glucose Level 94 mg/dL (70-99) Calcium Level 7.3 mg/dL (8.5-10.1) IF-Asj-D-Type Natriuretic Peptide 6448 pg/mL (0-449) Laboratory Tests Test 07/20/21 19:30 07/21/21 05:00 07/21/21 05:05 D-Dimer (Gia) 3.55 ug/mlFEU (0.00-0.50) Troponin I High Sensitivity 98 ng/L (4-50) Prothrombin Time 13.5 SEC (11.7-14.0) Prothromb Time International Ratio 1.1 (0.8-1.1) Activated Partial Thromboplast Time 28 SEC (24-38) Sodium Level 141 mmol/L (136-145) Potassium Level 4.2 mmol/L (3.5-5.1) Chloride Level 110 mmol/L (98-107) Carbon Dioxide Level 25 mmol/L (21-32) Anion Gap 6 (6-14) Blood Urea Nitrogen 12 mg/dL (7-20) Creatinine 0.5 mg/dL (0.6-1.0) Estimated GFR (Cockcroft-Gault) 119.3 Glucose Level 94 mg/dL (70-99) Calcium Level 7.3 mg/dL (8.5-10.1) KM-Mwq-Q-Type Natriuretic Peptide 6448 pg/mL (0-449) Brief Hospital Course Ms. Mcguire is a 76 old female who presented with sacral fractures. Consultation was placed to PM&R. Interventional radiology was consulted as well for left sacroplasty. Patient tolerated this procedure well, and was stable to discharge home with PCP follow-up. Consultation was also placed to cardiology for new A. fib. She was recommended to discontinue metoprolol due to marginal blood pressure. She was initiated on aspirin. She was discharged home with PCP and cardiology follow-up. Discharge Information Condition at Discharge: Improved Disposition/Orders: D/C to Home Scheduled Denosumab (Prolia) 60 Mg/1 Ml Disp.syrin, 1 SYR SQ q2xoapbc for ostoporosis for 1 Days, #1 Ref 0 (Reported) Entered as Reported by: DE TURNER on 10/08/20 1347 Last Action: Reviewed on 07/19/211630 by KELBY HAIDER Plecanatide (Trulance) 3 Mg Tablet, 1 TAB PO DAILY for constipation for 30 Days, #30 Ref 0 (Reported) Entered as Reported by: EUGENE BARAHONA on 11/26/20 0908 Last Action: Converted on 07/19/211718 by PARRIS MOLINA MD Scheduled PRN Ibuprofen (Ibuprofen) 800 Mg Tablet, 800 MG PO PRN TID PRN for INFLAMMATION, #60 Prescribed by: TOÑO CARSON on 04/04/16 0831 Last Action: Reviewed on 07/19/211630 by KELBY HAIDER Sumatriptan Succinate (Imitrex) 100 Mg Tablet, 100 MG PO PRN PRN for MIGRAINE HEADACHE, (Reported) Not given while in hosp. May resume at home as directed as needed. Entered as Reported by: AARON KHALIL on 06/06/14 1251 Last Action: Reviewed on 07/19/211630 by KELBY HAIDER Justicifation of Admission Dx: Justifications for Admission: Justification of Admission Dx: Yes CARLI COH MD Jul 21, 2021 13:51
[2021-07-21] MEDS ORDERED: ASPI-886 PO (13:53)
[2021-07-21] MEDS ORDERED: HYDR-2761 PO (13:53)
--- NOTE | 2021-07-21 15:05 | PDOC ---
PROGRESS NOTES Date of Service DATE: 07/21/21 TIME: 15:04 Subjective Subjective She feels better after sacroplasty. Objective Objective Vital Signs Date Time Temp Pulse Resp B/P (MAP) Pulse Ox O2 Delivery O2 Flow Rate FiO2 07/21/21 11:15 98.9 82 16 109/70 (83) 96 Room Air 2.0 98.9 Intake and Output 07/21/21 07:00 Intake Total 780 ml Balance 780 ml Intake Oral 780 ml # Voids 3 Physical Exam Physical Exam She is alert,supine in bed and eager to go home. Plan Plan of Mcc when medically stable. Comment Review of Relevant I have reviewed the following items jordin (where applicable) has been applied. Labs Laboratory Tests Test 07/19/21 17:40 07/20/21 01:30 07/20/21 19:30 07/21/21 05:00 Troponin I High Sensitivity 226 ng/L (4-50) 98 ng/L (4-50) White Blood Count 9.4 x10^3/uL (4.0-11.0) Red Blood Count 3.60 x10^6/uL (3.50-5.40) Hemoglobin 10.8 g/dL (12.0-15.5) Hematocrit 32.8 % (36.0-47.0) Mean Corpuscular Volume 91 fL (79-100) Mean Corpuscular Hemoglobin 30 pg (25-35) Mean Corpuscular Hemoglobin Concent 33 g/dL (31-37) Red Cell Distribution Width 14.4 % (11.5-14.5) Platelet Count 189 x10^3/uL (140-400) Neutrophils (%) (Auto) 79 % (31-73) Lymphocytes (%) (Auto) 14 % (24-48) Monocytes (%) (Auto) 5 % (0-9) Eosinophils (%) (Auto) 2 % (0-3) Basophils (%) (Auto) 0 % (0-3) Neutrophils # (Auto) 7.4 x10^3/uL (1.8-7.7) Lymphocytes # (Auto) 1.3 x10^3/uL (1.0-4.8) Monocytes # (Auto) 0.5 x10^3/uL (0.0-1.1) Eosinophils # (Auto) 0.2 x10^3/uL (0.0-0.7) Basophils # (Auto) 0.0 x10^3/uL (0.0-0.2) Heparin Anti-Xa Act, Unfractionated < 0.10 IU/mL (0.30-0.70) Sodium Level 138 mmol/L (136-145) Potassium Level 3.4 mmol/L (3.5-5.1) Chloride Level 104 mmol/L (98-107) Carbon Dioxide Level 25 mmol/L (21-32) Anion Gap 9 (6-14) Blood Urea Nitrogen 14 mg/dL (7-20) Creatinine 0.7 mg/dL (0.6-1.0) Estimated GFR (Cockcroft-Gault) 80.9 BUN/Creatinine Ratio 20 (6-20) Glucose Level 127 mg/dL (70-99) Calcium Level 7.4 mg/dL (8.5-10.1) Total Bilirubin 0.6 mg/dL (0.2-1.0) Aspartate Amino Transf (AST/SGOT) 22 U/L (15-37) Alanine Aminotransferase (ALT/SGPT) 26 U/L (14-59) Alkaline Phosphatase 66 U/L (46-116) Creatine Kinase 90 U/L (26-192) Total Protein 5.9 g/dL (6.4-8.2) Albumin 2.7 g/dL (3.4-5.0) Albumin/Globulin Ratio 0.8 (1.0-1.7) Triglycerides Level 104 mg/dL (0-150) Cholesterol Level 181 mg/dL (0-200) LDL Cholesterol, Calculated 92 mg/dL (0-100) VLDL Cholesterol, Calculated 21 mg/dL (0-40) Non-HDL Cholesterol Calculated 113 mg/dL (0-129) HDL Cholesterol 68 mg/dL (40-60) Cholesterol/HDL Ratio 2.7 Thyroid Stimulating Hormone (TSH) 3.906 uIU/mL (0.358-3.74) D-Dimer (Gia) 3.55 ug/mlFEU (0.00-0.50) Test 07/21/21 05:05 Prothrombin Time 13.5 SEC (11.7-14.0) Prothromb Time International Ratio 1.1 (0.8-1.1) Activated Partial Thromboplast Time 28 SEC (24-38) Sodium Level 141 mmol/L (136-145) Potassium Level 4.2 mmol/L (3.5-5.1) Chloride Level 110 mmol/L (98-107) Carbon Dioxide Level 25 mmol/L (21-32) Anion Gap 6 (6-14) Blood Urea Nitrogen 12 mg/dL (7-20) Creatinine 0.5 mg/dL (0.6-1.0) Estimated GFR (Cockcroft-Gault) 119.3 Glucose Level 94 mg/dL (70-99) Calcium Level 7.3 mg/dL (8.5-10.1) FV-Nmm-U-Type Natriuretic Peptide 6448 pg/mL (0-449) Laboratory Tests Test 07/20/21 19:30 07/21/21 05:00 07/21/21 05:05 D-Dimer (Gia) 3.55 ug/mlFEU (0.00-0.50) Troponin I High Sensitivity 98 ng/L (4-50) Prothrombin Time 13.5 SEC (11.7-14.0) Prothromb Time International Ratio 1.1 (0.8-1.1) Activated Partial Thromboplast Time 28 SEC (24-38) Sodium Level 141 mmol/L (136-145) Potassium Level 4.2 mmol/L (3.5-5.1) Chloride Level 110 mmol/L (98-107) Carbon Dioxide Level 25 mmol/L (21-32) Anion Gap 6 (6-14) Blood Urea Nitrogen 12 mg/dL (7-20) Creatinine 0.5 mg/dL (0.6-1.0) Estimated GFR (Cockcroft-Gault) 119.3 Glucose Level 94 mg/dL (70-99) Calcium Level 7.3 mg/dL (8.5-10.1) XQ-Jtd-D-Type Natriuretic Peptide 6448 pg/mL (0-449) Medications Current Medications Non-Formulary Medication (Plecanatide (Trulance)) 1 tab DAILY PO ; Start 07/20/21 at 09:00; Status UNV Diltiazem HCl 125 mg/Sodium Chloride 125 ml @ 5 mls/hr CONT PRN IV PER PROTOCOL; Start 07/19/21 at 17:15; Status UNV Diltiazem HCl (Cardizem Iv Push) 10 mg 1X ONCE IVP ; Start 07/19/21 at 17:15; Stop 07/19/21 at 17:16; Status UNV Fentanyl Citrate (Fentanyl 2ml Vial) 25 mcg PRN Q3HRS PRN IVP SEVERE PAIN 7-10 Last administered on 07/19/21at 22:54; Start 07/19/21 at 17:30 Psyllium Hydrophilic Mucilloid (Metamucil Fiber Packet) 1 pkt QHS PO Last administered on 07/20/21at 20:24; Start 07/19/21 at 21:00 Polyethylene Glycol (miraLAX PACKET) 17 gm PRN DAILY PRN PO CONSTIPATION Last administered on 07/20/21at 20:24; Start 07/19/21 at 17:30 Acetaminophen/ Hydrocodone Bitart (Lortab 5/325) 1 tab PRN Q6HRS PRN PO MILD PAIN 1-3 Last administered on 07/20/21at 20:22; Start 07/19/21 at 17:30 Acetaminophen/ Hydrocodone Bitart (Lortab 5/325) 2 tab PRN Q6HRS PRN PO MODERATE PAIN, SEVERE PAIN Last administered on 07/20/21at 06:49; Start 07/19/21 at 17:30 Ondansetron HCl (Zofran) 4 mg PRN Q4HRS PRN IVP NAUSEA/VOMITING; Start 07/19/21 at 17:30 Acetaminophen (Tylenol) 650 mg PRN Q6HRS PRN PO MILD PAIN / TEMP > 100.3'F; Start 07/19/21 at 17:30 Metoprolol Tartrate (Lopressor Vial) 5 mg Q6HRS IVP Last administered on 07/19/21at 18:27; Start 07/19/21 at 18:00; Stop 07/20/21 at 09:53; Status DC Heparin Sodium (Porcine) (Heparin Sodium) 3,400 unit 1X ONCE IV Last administered on 07/19/21at 18:37; Start 07/19/21 at 17:30; Stop 07/20/21 at 10:14; Status DC Heparin Sodium/ Dextrose 250 ml @ 6.816 mls/ hr CONT PRN IV PER PROTOCOL Last administered on 07/19/21at 18:52; Start 07/19/21 at 17:30; Stop 07/20/21 at 10:14; Status DC Heparin Sodium (Porcine) (Heparin Sodium) 1,450 unit PRN Q6HRS PRN IV FOR UFH LEVEL LESS THAN 0.2 Last administered on 07/20/21at 03:18; Start 07/19/21 at 17:30; Stop 07/20/21 at 14:57; Status DC Hydromorphone HCl (Dilaudid) 0.5 mg PRN Q3HRS PRN IVP PAIN; Start 07/19/21 at 18:00 Sodium Chloride 1,000 ml @ 1,000 mls/hr 1X ONCE IV Last administered on 07/20/21at 02:29; Start 07/20/21 at 02:30; Stop 07/20/21 at 03:29; Status DC Albumin Human 500 ml @ 125 mls/hr 1X ONCE IV Last administered on 07/20/21at 03:51; Start 07/20/21 at 04:00; Stop 07/20/21 at 07:59; Status DC Diphenhydramine HCl (Benadryl) 25 mg PRN Q6HRS PRN PO ITCHING Last administered on 07/21/21at 11:09; Start 07/20/21 at 08:45 Aspirin (Ecotrin) 81 mg DAILYWBKFT PO Last administered on 07/20/21at 12:29; Start 07/20/21 at 12:00 Potassium Chloride (Klor-Con) 20 meq 1X ONCE PO Last administered on 07/20/21at 10:22; Start 07/20/21 at 11:00; Stop 07/20/21 at 11:01; Status DC Sodium Chloride 1,000 ml @ 75 mls/hr 1X ONCE IV Last administered on 07/20/21at 10:22; Start 07/20/21 at 10:00; Stop 07/20/21 at 23:19; Status DC Iohexol (Omnipaque 350 Mg/ml) 100 ml 1X ONCE IV Last administered on 07/20/21at 23:18; Start 07/20/21 at 23:00; Stop 07/20/21 at 23:01; Status DC Info (CONTRAST GIVEN -- Rx MONITORING) 1 each PRN DAILY PRN MC SEE COMMENTS; Start 07/20/21 at 22:45; Stop 07/22/21 at 22:44 Lidocaine HCl (Buffered Lidocaine 1%) 3 ml STK-MED ONCE .ROUTE ; Start 07/21/21 at 07:56; Stop 07/21/21 at 07:56; Status DC Cefazolin Sodium (Ancef) 1 gm STK-MED ONCE IVP ; Start 07/21/21 at 08:29; Stop 07/21/21 at 08:29; Status DC Midazolam HCl (Versed) 2 mg STK-MED ONCE .ROUTE ; Start 07/21/21 at 08:29; Stop 07/21/21 at 08:29; Status DC Fentanyl Citrate (Fentanyl 2ml Vial) 100 mcg STK-MED ONCE .ROUTE ; Start 07/21/21 at 08:29; Stop 07/21/21 at 08:30; Status DC Lidocaine HCl (Buffered Lidocaine 1%) 3 ml 1X ONCE IJ Last administered on 07/21/21at 09:29; Start 07/21/21 at 09:30; Stop 07/21/21 at 09:31; Status DC Midazolam HCl (Versed) 2 mg 1X ONCE IV Last administered on 07/21/21at 09:29; Start 07/21/21 at 09:30; Stop 07/21/21 at 09:31; Status DC Fentanyl Citrate (Fentanyl 2ml Vial) 100 mcg 1X ONCE IV Last administered on 07/21/21at 09:28; Start 07/21/21 at 09:30; Stop 07/21/21 at 09:31; Status DC Cefazolin Sodium (Ancef) 1 gm 1X ONCE IVP Last administered on 07/21/21at 09:29; Start 07/21/21 at 09:30; Stop 07/21/21 at 09:31; Status DC Active Scripts Active Hydrocodone-Apap 5-325 (Hydrocodone Bit/Acetaminophen) 1 Tab Tablet 1 Tab PO PRN Q6HRS PRN 7 Days Aspirin Ec (Aspirin) 81 Mg Tablet.dr 81 Mg PO DAILYWBKFT 60 Days Reported Trulance (Plecanatide) 3 Mg Tablet 1 Tab PO DAILY 30 Days Prolia (Denosumab) 60 Mg/1 Ml Disp.syrin 1 Syr SQ [id number] 1 Days Imitrex (Sumatriptan Succinate) 100 Mg Tablet 100 Mg PO PRN PRN Not given while in hosp. May resume at home as directed as needed. Vitals/I & O Vital Sign - Last 24 Hours 07/20/21 07/20/21 07/20/21 07/20/21 19:59 20:00 20:21 20:22 Temp 99.2 99.2 Pulse 98 Resp 18 18 18 B/P (MAP) 109/62 (78) Pulse Ox 92 95 O2 Delivery Room Air Room Air Room Air Room Air 07/20/21 07/21/21 07/21/21 07/21/21 23:25 00:12 01:30 02:53 Temp 98.2 98.1 98.2 98.1 Pulse 96 82 Resp 16 16 B/P (MAP) 119/57 (77) 102/61 (75) Pulse Ox 93 95 92 O2 Delivery Room Air Room Air Room Air Room Air O2 Flow Rate 2.0 2.0 07/21/21 07/21/21 07/21/21 07/21/21 07:00 08:00 08:42 08:50 Temp 98.6 98.6 Pulse 82 87 94 Resp 16 20 18 B/P (MAP) 126/70 (88) Pulse Ox 94 96 97 O2 Delivery Room Air Room Air Nasal Cannula Nasal Cannula O2 Flow Rate 2.0 2.0 07/21/21 07/21/21 07/21/21 07/21/21 08:55 09:00 09:05 09:09 Pulse 86 85 83 98 Resp 18 20 20 17 Pulse Ox 97 97 97 98 O2 Delivery Nasal Cannula Nasal Cannula Nasal Cannula Nasal Cannula O2 Flow Rate 2.0 2.0 2.0 2.0 07/21/21 07/21/21 07/21/21 07/21/21 09:15 09:20 09:23 09:28 Pulse 100 100 98 Resp 14 18 18 18 Pulse Ox 96 96 96 96 O2 Delivery Nasal Cannula Nasal Cannula Nasal Cannula O2 Flow Rate 2.0 2.0 2.0 2.0 07/21/21 07/21/21 09:58 11:15 Temp 98.9 98.9 Pulse 82 Resp 16 16 B/P (MAP) 109/70 (83) Pulse Ox 96 96 O2 Delivery Room Air Room Air O2 Flow Rate 2.0 Intake and Output 07/20/21 07/20/21 07/21/21 15:00 23:00 07:00 Intake Total 360 ml 180 ml 240 ml Balance 360 ml 180 ml 240 ml Justifications for Admission General Conditions Poss tachycardia?: Yes Justification for admission: Patient has tachycardia (> 100 beats per minute) which is not readily corrected by appropriate treatment within 12 to 24 hours. Other Justification JONES HEATON MD Jul 21, 2021 15:05
--- NOTE | 2021-07-21 16:00 | NUR ---
DISCHARGE PIV ET TELE DISCONTINUED. DISCHARGE INFORMATION REVIEWED WITH PATIENT. MEDICATIONS, FOLLOW UP APPOINTMENTS AND INDICATIONS FOR CONCERN REVIEWED WITH PATIENT. EXPLAINED THAT CARDIOLOGY DID NOT WANT HER TO LEAVE UNTIL HER ECHO WAS COMPLETED. PT ADAMANTLY REFUSED TO STAY. DISCHARGE VIA WHEELCHAIR TO PERSONAL VEHICLE WITH FOR DC.
== END 2021-07-21 16:05 | disposition home or self-care (01) | DRG 516 ==
LOC: 4 NORTH 16:00 → 6 SOUTH 16:19
PROVIDERS: ADMIT Internal Medicine; ATTEND Internal Medicine
PROC: 0QU13JZ Supplement Sacrum with Synthetic Substitute, Percutaneous Approach (ICD-10-PCS; principal; 2021-07-21)
DX: S32.119A Unspecified Zone I fracture of sacrum, initial encounter for closed fracture (principal); N39.0 Urinary tract infection, site not specified; I47.1 Supraventricular tachycardia; I50.30 Unspecified diastolic (congestive) heart failure; M81.0 Age-related osteoporosis without current pathological fracture; G43.909 Migraine, unspecified, not intractable, without status migrainosus; G89.29 Other chronic pain; I11.0 Hypertensive heart disease with heart failure; I44.4 Left anterior fascicular block; K59.00 Constipation, unspecified; M41.9 Scoliosis, unspecified; M43.16 Spondylolisthesis, lumbar region; M47.816 Spondylosis without myelopathy or radiculopathy, lumbar region; Y93.01 Activity, walking, marching and hiking; Z86.72 Personal history of thrombophlebitis; Z90.710 Acquired absence of both cervix and uterus; Z96.652 Presence of left artificial knee joint; G43.009 Migraine without aura, not intractable, without status migrainosus; M19.90 Unspecified osteoarthritis, unspecified site; I48.91 Unspecified atrial fibrillation; Z79.01 Long term (current) use of anticoagulants; W18.39XA Other fall on same level, initial encounter; Y93.89 Activity, other specified; Y92.89 Other specified places as the place of occurrence of the external cause; Y99.8 Other external cause status; I95.9 Hypotension, unspecified
CPT/HCPCS: 22511; 36415; 71275; 80048; 80053; 80061; 82550; 83880; 84443; 84484; 85025; 85379; 85520; 85610; 85730; 93005; 99152; 99153; A4314; C1713; J0690; J1644; J2250; J3010; J3490; J7030; P9045; Q9967; G0378; Q0163

== ENCOUNTER → 2021-08-03 | Outpatient (CLI) | payer MEDICARE, OTHER ==
[2021-07-21 11:15] VITALS: BP 109/70
[~2021-08-03] MED LIST changes: +ASPI-886 PO; +REGADENOSON 0.4 MG/5 ML DISP.SYRIN. IV ONE
--- NOTE | 2021-08-03 17:12 | RAD ---
MR#: [id number] Date of Study: 08/03/2021 Ordering Physician: MEME CARBALLO, Referring Physician: CATRACHITA RENTERIA Tech: JEN Melton, ARRT (R) (N) APPROVED REPORT Test Type: Pharmacological Stress Nurse/Tech: Myrtle Pena R.N. Test Indications: tachycardia, chf Cardiac History: none Medications: see ehr Medical History: see ehr Resting ECG: SR with PVCs and PACs Resting Heart Rate: 105 bpm Resting Blood Pressure: 138/53mmHg Pretest Chest Pain: No chest pain Nurse/Tech Notes lungs cta, heart tones irregular Consent: The procedure was explained to the patient in lay terms. Informed consent was witnessed. Chet eout was entered into [employer]. History and Stress Test performed by CULLEN Higgins Pharm. Details Pharmacologic stress testing was performed using 0.4mg per 5ml of regadenoson given intravenously ove r 7-10 seconds. Stress Symptoms No chest pain or symptoms. POST EXERCISE Reason for Termination: Infusion complete Max HR: 150 bpm Max Blood Pressure: 132/73mmHg Chest Pain: No. Arrhythmia: Yes. multifocal PVCs and PACs noted throughout, HR noted to spike x 1 to 161, then immedi ately dropped back to 115 ST Change: No. INTERPRETATION Stress EKG Conclusion: No evidence of stress-induced EKG changes Imaging Protocol IMAGE PROTOCOL: Rest Tc-99m/stress Tc-99m 1 day Rest: Stress: Viability: Radiopharm.Tc99m [id number] Sestamibi Dose10.5mCi 32mCi Img Date 08/03/2021 08/03/2021 Inj-Img Nuht61wts. 60min. Rest Admin Site:IV - Left AntecubitalAdministrator:CULLEN Higgins Stress Admin Site: IV - Left AntecubitalAdministrator: CULLEN Higgins STRESS DATA End Diast. Vol.70.0mlAv. Heart Cwxq201.0bpm End Syst. Vol.23.0mlCO Index BSA0.0L/min Myocardial Qlkd016.0gEject. Vstjnytx59.0% Stress Rates Pk. Fill Rate3.51EDV/secLVtime Pk. Fill 153.17msec Pk. Empty Rate4.48ESV/secLVtime Pk. Vpjtn001.68msec 03/29 Pk. Fill0.44EDV/sec Stress Scores Regional WT3.00Summed WT23.00 Regional WM0.00Summed WM9.00 LV Perfusion Normal perfusion stress. Rest images are obscured by artifact. Wall Motion Grossly normal wall motion at stress, EF greater than 55% LV Perf. Quant 17 Seg. SSS0.00 17 Seg. SRS6.00 17 Seg. SDS0.00 Stress Defect Extent (% LAD)0.00Rest Defect Extent (% LAD)11.30Rev. Defect Extent (% LAD)0.00 Stress Defect Extent (% LCX) 0.00Rest Defect Extent (% LCX)52.50Rev. Defect Extent (% LCX)0.00 Stress Defect Extent (% RCA)0.00Rest Defect Extent (% RCA)3.30Rev. Defect Extent (% RCA)0.00 Stress Defect Extent (% TAYE)0.00Rest Defect Extent (% TAYE)19.60Rev. Defect Extent (% TAYE)0.00 Other Information Quality:Poor Risk Assessment: Low Risk Conclusion 1. No evidence of stress-induced EKG changes. Frequent PVCs at rest. 2. Normal perfusion and stress. Rest images are nondiagnostic due to artifact and subdiaphragmatic at tenuation. 3. Normal EF at greater than 55% 4. Low risk study overall. Signed by : Taco Long, Electronically Approved : 08/03/2021 17:11:32
--- NOTE | 2021-08-03 17:33 | CARD ---
MR#: [id number] Date of Study: 08/03/2021 Ordering Physician: MEME CARBALLO, Referring Physician: MEME CARBALLO, Bea: Yari Miller [facility] APPROVED REPORT EXAM: Two-dimensional and M-mode echocardiogram with Doppler and color Doppler. Other Information Quality : Good Rhythm : Atrial Fibrillation INDICATION Chest Pain 2D DIMENSIONS Left Atrium(2D)2.5 (1.6-4.0cm)IVSd0.9 (0.7-1.1cm) Aortic Root(2D)3.3 (2.0-3.7cm)LVDd4.9 (3.9-5.9cm) LVOT Diameter2.1 (1.8-2.4cm)PWd0.7 (0.7-1.1cm) LVDs3.3 (2.5-4.0cm)FS (%) 31.0 % SV64.5 mlLVEF(%)58.5 (>50%) Aortic Valve AoV Peak Lupillo.103.7cm/[place] Peak GR.6.6mmHg LVOT Peak Lupillo.87.4cm/sAVA (VMAX)2.79cm2 AI P 1/2 [id number] Pulmonary Valve PV Peak Wjojyron737.6cm/s Tricuspid Valve TR P. Wlpepwlr718pt/sRAP [id number] TR Peak Gr.27mmHg LEFT VENTRICLE The left ventricle is normal size. There is normal left ventricular wall thickness. The systolic func tion is moderately impaired. EF 40% (Difficult to estimate due to atrial fibrillation and frequent PV C's) Septal motion suggestive of conduction defect. There is mild global hypokinesis. Tissue Doppler imaging reveals moderate left ventricular diastolic dysfunction. No left ventricle thrombus noted on this study. There is no ventricular septal defect visualized. There is no left ventricular aneurysm. There is no mass noted in the left ventricle. RIGHT VENTRICLE The right ventricle is normal size. There is normal right ventricular wall thickness. The right ventr icular systolic function is normal. ATRIA The left atrium is moderately dilated. The right atrium is mildly dilated. The interatrial septum is intact with no evidence for an atrial septal defect or patent foramen ovale as noted on 2-D or Dopple r imaging. AORTIC VALVE The aortic valve is normal in structure and function. Doppler and Color Flow revealed mild aortic reg urgitation. There is no aortic valvular stenosis. There is no aortic valvular vegetation. MITRAL VALVE The mitral valve is normal in structure and function. There is no evidence of mitral valve prolapse. There is no mitral valve stenosis. Doppler and Color Flow revealed mild mitral regurgitation. TRICUSPID VALVE The tricuspid valve is normal in structure and function. Doppler and Color Flow revealed mild tricusp id regurgitation. The pulmonary artery systolic pressure is estimated at 30-40 mmHg. There is no tric uspid valve prolapse or vegetation. There is no tricuspid valve stenosis. PULMONIC VALVE There is no pulmonic valvular regurgitation. There is no pulmonic valvular stenosis. GREAT VESSELS The aortic root is normal in size. The ascending aorta is normal in size. The IVC is normal in size a nd collapses >50% with inspiration. PERICARDIAL EFFUSION There is no pleural effusion. There is no evidence of significant pericardial effusion. Critical Notification Critical Value: No <Conclusion> The systolic function is moderately impaired. EF 40% (Difficult to estimate due to atrial fibrillatio n and frequent PVC's) Septal motion suggestive of conduction defect. There is mild global hypokinesis. Doppler and Color Flow revealed mild tricuspid regurgitation. The pulmonary artery systolic pressure is estimated at 30-40 mmHg. Signed by : Taco Long, Electronically Approved : 08/03/2021 17:32:48
== END ==
LOC: NM 08:38
PROVIDERS: ATTEND Internal Medicine Cardiovascular Disease
DX: I08.3 Combined rheumatic disorders of mitral, aortic and tricuspid valves (principal); I48.91 Unspecified atrial fibrillation; R07.9 Chest pain, unspecified
CPT/HCPCS: 78452; 93017; 93306; A9500; J2785; C8929